=== PATIENT | female | born 1940 | race American Indian/Alaskan Native ===

== ENCOUNTER 2021-06-07 01:17 | Inpatient (IN) | payer MEDICARE ==
[~2021-06-07 01:17] MED LIST: EPINEPHrine 1 MG/10 ML SYRINGE ONE; LIDOCAINE PF 100 MG/5 ML (CARDIAC SYRINGE) IV ONE; SODIUM BICARB 8.4% 50 MEQ/50 ML SYRINGE IV ONE
[2021-06-07] MEDS ORDERED: SODIUM CHLORIDE 0.9% 1000 ML 1,000 ML IV ONE ×2 (01:28→01:39)
[2021-06-07] MEDS ORDERED: DOPamine 800 MG/D5W 250ML 800 MG/250 ML BAG IV ONE ×2 (01:42→02:08)
--- NOTE | 2021-06-07 01:45 | Emergency Department Report ---
HPI - General Time Seen by Provider: 06/07/21 01:25 - HPI HPI: Room 22 The patient is an 81-year-old female present with a chief complaint of altered mental status. The patient is at [facility] under [facility] (full code) brought in with altered mental status. Per EMS the patient has a history of diabetes and dementia but is normally alert and talkative. Patient is completely unresponsive upon arrival to the ED with absent gag reflex, subsequently the patient was intubated on arrival and did not require RSI medications ED Past Medical Hx - Past Medical History Hx Diabetes: Yes Hx Dementia: Yes - Surgical History Past Surgical History?: No - Family History Family history: no significant - Social History Smoking Status: Unknown if ever smoked ED Review of Systems ROS: Stated complaint: UNRESPONSIVE Other details as noted in HPI Comment: Unobtainable due to pts medical conditions Physical Exam - Physical Exam Physical Exam: GENERAL: The patient is well-developed well-nourished female unresponsive on stretcher. [] HEENT: Normocephalic. Atraumatic. Pupils 3 to 2 mm bilaterally NECK: Supple. Trachea midline CHEST/LUNGS: Agonal respirations HEART/CARDIOVASCULAR: Regular. There is no tachycardia. There is no gallop rub or murmur. ABDOMEN: Abdomen is soft, nontender. Patient has normal bowel sounds. There is no abdominal distention. SKIN: There is no rash. There is no edema. There is no diaphoresis. NEURO: The patient is unresponsive. Absent gag reflex. GCS 3 MUSCULOSKELETAL: T There is no evidence of acute injury. ED Course - Reevaluation(s) Reevaluation #1: 06/07/21 01:45 Patient bradycardia down to asystole. ACLS initiated. Patient was given 1 round of epi and 1 amp sodium bicarb with return of spontaneous circulation - Central Line Placement Right Femoral Consent Obtained: emergent situation Time Out Performed: Yes Patient Placed on Monitor/Pulse Ox: Yes MD Prep: mask, gown, gloves Central Line Prep: Chlorhexidine scrub Local Anesthesia Used: Lidocaine 1% Amount of Anesthesia Used (mls): 5 Ultrasound Used for Placement: No Central Line Lumen Inserted: triple Reason for Insertion: High Alert Medication Bloods Obtained for Lab: No Central Line Position: good blood return (Nonpulsatile) Dressing Applied: Tegaderm Patient Tolerated Procedure: well, no complications Complications: none - Intubation Time Out Performed: No Laryngoscope: fiberoptic video scope Size: 3 Assist Device Used: fiberoptic device ET Tube Size: 7 Tube Secured Depth (cm): 21 Tube Secured Location: lips Tube Placement Confirmation: visualized tube passing t, equal breath sounds bilat, no breath sounds over epi, confirmation by capnometr Patient Tolerated Procedure: well, no complications Intubation Complications: none ED Medical Decision Making - Lab Data Result diagrams: 06/07/21 01:39 06/07/21 01:39 Laboratory Tests 06/07/21 06/07/21 06/07/21 01:25 01:39 01:39 WBC 16.8 H RBC 3.21 L Hgb 10.1 Hct 38.1 MCV 119 H MCH 32 MCHC 27 L RDW 17.0 H Plt Count 307 PT 15.4 H INR 1.09 APTT 27.4 VBG pH Sodium Potassium Chloride Carbon Dioxide Anion Gap BUN Creatinine Estimated GFR BUN/Creatinine Ratio Glucose POC Glucose > 600 H Lactic Acid Calcium Total Bilirubin AST ALT Alkaline Phosphatase Ammonia Total Creatine Kinase CK-MB (CK-2) CK-MB (CK-2) Rel Index Troponin T Total Protein Albumin Albumin/Globulin Ratio Lipase 06/07/21 06/07/21 06/07/21 01:39 01:39 01:39 WBC RBC Hgb Hct MCV MCH MCHC RDW Plt Count PT INR APTT VBG pH Sodium 147 H Potassium 8.0 H* Chloride 95.7 L Carbon Dioxide Anion Gap 55 BUN 76 H Creatinine 4.8 H Estimated GFR 9 BUN/Creatinine Ratio 16 Glucose 1203 H* POC Glucose Lactic Acid 6.50 H* Calcium 9.2 Total Bilirubin 0.40 AST 60 H ALT 27 Alkaline Phosphatase 124 Ammonia 92.0 H Total Creatine Kinase 431 H CK-MB (CK-2) 6.7 H CK-MB (CK-2) Rel Index 1.5 Troponin T Total Protein 6.1 L Albumin 3.7 L Albumin/Globulin Ratio 1.5 Lipase 80 H 06/07/21 01:39 WBC RBC Hgb Hct MCV MCH MCHC RDW Plt Count PT INR APTT VBG pH 7.003 L* Sodium Potassium Chloride Carbon Dioxide Anion Gap BUN Creatinine Estimated GFR BUN/Creatinine Ratio Glucose POC Glucose Lactic Acid Calcium Total Bilirubin AST ALT Alkaline Phosphatase Ammonia Total Creatine Kinase CK-MB (CK-2) CK-MB (CK-2) Rel Index Troponin T Total Protein Albumin Albumin/Globulin Ratio Lipase - EKG Data -: EKG Interpreted by Me Rate: tachycardia (141 bpm) - EKG Data When compared to previous EKG there are: previous EKG unavailable Interpretation: nonspecific ST-T wave darren - Radiology Data Radiology results: report reviewed (CT head, chest x-ray), image reviewed (CT head, chest x-ray) interpreted by me: Chest x-ray-no definite focal infiltrates, no pneumothorax. ET tube in appropriate position [facility] [address] [place] [address] Cat Scan Report Signed Patient: EMMA ALCOCER MR#: [id number] 14 : 1940 Acct:[id number] Age/Sex: 81 / F ADM Date: 06/07/21 Loc: ED Attending Dr: Ordering Physician: NICO KAUR MD Date of Service: 06/07/21 Procedure(s): CT head/brain wo con Accession Number(s): [id number] cc: NICO KAUR MD CT HEAD WITHOUT CONTRAST INDICATION / CLINICAL INFORMATION: Altered mental status. TECHNIQUE: CT of the head was performed without administration of intravenous contrast. All CT scans at this location are performed using CT dose reduction for ALARA by means of automated exposur e control. COMPARISON: None available. FINDINGS: CEREBRAL PARENCHYMA: No significant abnormality. No acute territorial infarct. Generalized cortical and central atrophy. Periventricular regions of white matter hypoattenuation compatible with microvascular ischemia. HEMORRHAGE: None. EXTRA-AXIAL SPACES: Normal in size and morphology for the patient's age. Small calcified left frontal meningioma not excluded. VENTRICULAR SYSTEM: Normal in size and morphology for the patient's age. MIDLINE SHIFT / HERNIATION: None. CEREBELLUM / BRAINSTEM: No significant abnormality. ORBITS: Prior repair of a left cataract. SOFT TISSUES: No significant abnormality. SKULL: No significant abnormality. PARANASAL SINUSES / MASTOID AIR CELLS: Normal as visualized. ADDITIONAL FINDINGS: Partial imaging of right nasogastric tube. IMPRESSION: 1. Generalized atrophy and findings compatible with microvascular ischemia. No CT evidence of acute intracranial pathology. Signer Name: Nathen Wisdom II, MD Signed: 06/07/2021 3:18 AM Workstation Name: [id number] Transcribed By: SALLIE Dictated By: NATHEN WISDOM II, MD Electronically Authenticated By: NATHEN WISDOM II, MD Signed Date/Time: 06/07/21317 DD/ 4 TD/TT: Print Cancel [facility] [address] [place] [address] XRay Report Signed Patient: EMMA ALCOCER MR#: [id number] 14 : 1940 Acct:[id number] Age/Sex: 81 / F ADM Date: 06/07/21 Loc: ED Attending Dr: Ordering Physician: NICO KAUR MD Date of Service: 06/07/21 Procedure(s): XR chest 1V ap Accession Number(s): [id number] cc: NICO KAUR MD Fluoro Time In Minutes: CHEST 1 VIEW INDICATION / CLINICAL INFORMATION: Altered mental status, status post intubation. COMPARISON: None available. FINDINGS: SUPPORT DEVICES: Endotracheal tube terminates 3 to 4 cm above the chino. Esophagogastric tube wi thin the mid fundus. Defibrillator pad overlies the right chest. HEART / MEDIASTINUM: No significant abnormality. LUNGS / PLEURA: Small left suprahilar pulmonary nodule measuring 9 mm. Lungs otherwise clear. No pneumothorax. ADDITIONAL FINDINGS: No significant additional findings. Possible prior right mastectomy and axillary dissection. IMPRESSION: 1. No active cardiopulmonary disease. 2. Satisfactory positioning of endotracheal and esophagogastric tubes. 3. Small left pulmonary nodule not excluded. CT may be useful for further characterization. Signer Name: Nathen Wisdom II, MD Signed: 06/07/2021 2:19 AM Workstation Name: [id number] Transcribed By: Dictated By: NATHEN WISDOM II, MD Electronically Authenticated By: NATHEN WISDOM II, MD Signed Date/Time: 06/07/21218 DD/ 6 TD/TT: - Differential Diagnosis DKA, ICH, ACS, hepatic encephalopathy, metabolic encephalopathy Critical care attestation.: If time is entered above; I have spent that time in minutes in the direct care of this critically ill patient, excluding procedure time. ED Disposition Clinical Impression: Altered mental status, DKA (diabetic ketoacidosis), Hepatic encephalopathy, Dehydration, Leukocytosis, Acute kidney injury Disposition: ADMITTED INPATIENT Is pt being admited?: Yes Does the pt Need Aspirin: No Condition: Serious Instructions: Diabetic Ketoacidosis (ED) Time of Disposition: 03:37 (Hospitalist called (Dr Thomas))
[2021-06-07 02:14] LABS: Mean Corpuscular HGB Conc 27 % (30-34); Platelet Count 307 K/mm3 (140-440); Red Blood Count 3.21 M/mm3 (3.65-5.03)
[2021-06-07 02:18] LABS: Hematocrit 38.1 % (30.3-42.9); Hemoglobin 10.1 gm/dl (10.1-14.3); Mean Corpuscular Volume 119 fl (79-97)
[2021-06-07 02:24] LABS: INR 1.09 (0.87-1.13); Partial Thromboplastin Time 27.4 Sec. (24.2-36.6)
--- NOTE | 2021-06-07 02:24 | XRay Report ---
CHEST 1 VIEW INDICATION / CLINICAL INFORMATION: Altered mental status, status post intubation. COMPARISON: None available. FINDINGS: SUPPORT DEVICES: Endotracheal tube terminates 3 to 4 cm above the chino. Esophagogastric tube within the mid fundus. Defibrillator pad overlies the right chest. HEART / MEDIASTINUM: No significant abnormality. LUNGS / PLEURA: Small left suprahilar pulmonary nodule measuring 9 mm. Lungs otherwise clear. No pneu mothorax. ADDITIONAL FINDINGS: No significant additional findings. Possible prior right mastectomy and axillary dissection. IMPRESSION: 1. No active cardiopulmonary disease. 2. Satisfactory positioning of endotracheal and esophagogastric tubes. 3. Small left pulmonary nodule not excluded. CT may be useful for further characterization. Signer Name: Aubrey Long II, MD Signed: 06/07/2021 2:19 AM Workstation Name: [id number]
[2021-06-07 02:33] LABS: Creatine Kinase MB 6.7 ng/mL (0.0-4.0)
[2021-06-07 02:34] LABS: Albumin 3.7 g/dL (3.9-5); Calcium 9.2 mg/dL (8.4-10.2)
[2021-06-07] MEDS ORDERED: INSULIN REGULAR, HUMAN 100 UNITS/1 ML IV ONE (02:46)
[2021-06-07] MEDS ORDERED: INSULIN REGULAR, HUMAN 100 UNITS in SODIUM CHLORIDE 0.9% 99 ML IV SCH (03:00)
--- NOTE | 2021-06-07 03:22 | Cat Scan Report ---
CT HEAD WITHOUT CONTRAST INDICATION / CLINICAL INFORMATION: Altered mental status. TECHNIQUE: CT of the head was performed without administration of intravenous contrast. All CT scans at this location are performed using CT dose reduction for ALARA by means of automated exposure contr ol. COMPARISON: None available. FINDINGS: CEREBRAL PARENCHYMA: No significant abnormality. No acute territorial infarct. Generalized cortical a nd central atrophy. Periventricular regions of white matter hypoattenuation compatible with microvasc ular ischemia. HEMORRHAGE: None. EXTRA-AXIAL SPACES: Normal in size and morphology for the patient's age. Small calcified left frontal meningioma not excluded. VENTRICULAR SYSTEM: Normal in size and morphology for the patient's age. MIDLINE SHIFT / HERNIATION: None. CEREBELLUM / BRAINSTEM: No significant abnormality. ORBITS: Prior repair of a left cataract. SOFT TISSUES: No significant abnormality. SKULL: No significant abnormality. PARANASAL SINUSES / MASTOID AIR CELLS: Normal as visualized. ADDITIONAL FINDINGS: Partial imaging of right nasogastric tube. IMPRESSION: 1. Generalized atrophy and findings compatible with microvascular ischemia. No CT evidence of acute i ntracranial pathology. Signer Name: Aubrey Long II, MD Signed: 06/07/2021 3:18 AM Workstation Name: [id number]
[2021-06-07 03:33] LABS: ABG Base Excess -26.1 mmol/L (-2.0-3.0); ABG HCO3 4.1 mmol/L (20.0-26.0); ABG Oxygen Saturation 99.4 % (95.0-99.0); ABG PCO2 18.4 mm Hg
[2021-06-07 03:34] LABS: ABG PO2 293.4 mm Hg (80.0-90.0)
[2021-06-07 03:35] LABS: ABG PH 6.964 pH Units (7.350-7.450)
[2021-06-07] MEDS ORDERED: SODIUM BICARB 8.4% 50 MEQ/50 ML SYRINGE IV ONE (03:35)
[2021-06-07 03:45] LABS: Anisocytosis RARE; Basophils % (Manual) 0 % (0.0-1.8); Eosinophils % (Manual) 0 % (0.0-4.3); Macrocytosis 2+; Total Cells Counted 100
[2021-06-07] MEDS ORDERED: MORPHINE 2 MG/1 ML INJ IV PRN (04:05)
[2021-06-07] MEDS ORDERED: MORPHINE 4 MG/1 ML INJ IV PRN (04:05)
[2021-06-07] MEDS ORDERED: ACETAMINOPHEN 325 MG/10.15 ML ORAL LIQD UNIT DOSE FEEDTUBE PRN (04:05)
[2021-06-07] MEDS ORDERED: SODIUM CHLORIDE 0.9% 1000 ML 1,000 ML IV SCH (04:15)
--- NOTE | 2021-06-07 04:20 | History and Physical Report ---
History of Present Illness Date of examination: 06/07/21 Date of admission: 06/07/2021 Chief complaint: Altered mental status. History of present illness: 81-year-old -[place] female resident of [facility]hospice brought into the emergency room today via EMS for evaluation of changes in mental status. Patient has known history of diabetes mellitus and dementia was said to be normally alert and able to communicate. However she was found to be completely unresponsive today and brought into the emergency room for further evaluation. Upon arrival in the emergency room she was found not to have gag reflex and obtunded. She was subsequently intubated in the emergency room. Most of the history was obtained from the ER staff as patient is unable to give any information at this time. Work-up in the emergency room today, labs significant for leukocytosis of 16.8, sodium of 152, potassium of 5.3, CO2 of 2, glucose of 1026, lactic acid of 6.7, blood glucose greater than 600, phosphorus is 10.9 and magnesium 3.1. AST of 60 and ALT of 27. Ammonia level of 92, creatinine kinase of 431. ABG significant for pH of 6.9, PCO2 of 18.4, PO2 of 293, bicarb of 4.1. O2 sat of 99.4. Chest x-ray and CT scan of the head were unremarkable. Patient being admitted with multiple medical problems including DKA, hepatic encephalopathy, dehydration, leukocytosis, TONI and changes in mental status. Past History Past Medical History: diabetes, other (Dementia) Past Surgical History: Other (Unknown) Social history: other (Unknown) Medications and Allergies Allergies Allergy/AdvReac Type Severity Reaction Status Date / Time No Known Allergies Allergy Verified 06/07/21 02:20 Active Meds: Active Medications Acetaminophen (Acetaminophen 325 Mg/10.15 Ml Oral Liqd Unit Dose) 650 mg FEEDTUBE Q6H PRN PRN Reason: Pain MILD(1-3)/Fever >100.5/WOLF Dopamine HCl/Dextrose (Dopamine 800 Mg/D5w 250ml) 800 mg in 250 mls @ 4.594 mls/hr IV TITR ONE; Protocol Stop: 06/09/21 08:33 Last Titration: 06/07/21 04:09 Dose: 20 mcg/kg/min, 18.375 mls/hr Insulin Human Regular 100 (units/ Sodium Chloride) 100 mls @ 10 mls/hr IV TITR WANG; Protocol Last Admin: 06/07/21 03:28 Dose: 8 units/hr, 8 mls/hr Sodium Chloride (Nacl 0.9% 1000 Ml) 1,000 mls @ 150 mls/hr IV DIRECT WANG Potassium Chloride/Dextrose/Sod Cl (D5w/0.45% Nacl/Kcl 20 Meq) 20 meq in 1,000 mls @ 125 mls/hr IV DIRECT WANG Sodium Bicarbonate 50 meq/ (Sodium Chloride) 1,050 mls @ 100 mls/hr IV DIRECT WANG Morphine Sulfate (Morphine 2 Mg/1 Ml Inj) 2 mg IV Q4H PRN PRN Reason: Pain, Moderate (4-6) Morphine Sulfate (Morphine 4 Mg/1 Ml Inj) 4 mg IV Q4H PRN PRN Reason: Pain , Severe (7-10) Sodium Chloride (Sodium Chloride 0.9% 10 Ml Flush Syringe) 10 ml IV BID WANG Sodium Chloride (Sodium Chloride 0.9% 10 Ml Flush Syringe) 10 ml IV PRN PRN PRN Reason: LINE FLUSH Review of Systems ROS unobtainable: due to endotracheal tube Exam - Constitutional Vitals: Temp Pulse Resp BP Pulse Ox 97.4 F L 124 H 19 106/36 96 06/07/21 02:47 06/07/21 04:00 06/07/21 04:00 06/07/21 04:00 06/07/21 04:00 General appearance: Present: no acute distress, well-nourished, other (Intubated and Sedated) - EENT Eyes: Present: PERRL, EOM intact. Absent: scleral icterus ENT: hearing intact, clear oral mucosa, dentition normal - Neck Neck: Present: supple, normal ROM - Respiratory Respiratory effort: normal Respiratory: bilateral: CTA - Cardiovascular Rhythm: regular Heart Sounds: Present: S1 & S2. Absent: gallop, systolic murmur, rub, click - Extremities Extremities: no ischemia, pulses intact, pulses symmetrical, No edema, normal temperature, normal color, Full ROM Peripheral Pulses: within normal limits - Abdominal General gastrointestinal: Present: soft, non-tender, non-distended, normal bowel sounds. Absent: mass - Integumentary Integumentary: Present: clear, warm, dry, normal turgor. Absent: rash - Musculoskeletal Musculoskeletal: strength equal bilaterally - Psychiatric Psychiatric: cooperative - Neurologic Neurologic: no focal deficits, other (Intubated and Sedated.) HEART Score - HEART Score Troponin: Troponin T ng/mL (0.00-0.029) 06/07/21 01:39 Results - Labs CBC & Chem 7: 06/07/21 01:39 06/07/21 03:18 Labs: Abnormal lab results 06/07/21 06/07/21 06/07/21 Range/Units 01:25 01:39 01:39 WBC 16.8 H (4.5-11.0) K/mm3 RBC 3.21 L (3.65-5.03) M/mm3 MCV 119 H (79-97) fl MCHC 27 L (30-34) % RDW 17.0 H (13.2-15.2) % Seg Neuts % (Manual) 79.0 H (40.0-70.0) % Lymphocytes % (Manual) 13.0 L (13.4-35.0) % Monocytes % (Manual) 8.0 H (0.0-7.3) % Seg Neutrophils # Man 13.3 H (1.8-7.7) K/mm3 Monocytes # (Manual) 1.3 H (0.0-0.8) K/mm3 PT 15.4 H (12.2-14.9) Sec. ABG pH (7.350-7.450) pH Units ABG pO2 (80.0-90.0) mm Hg ABG HCO3 (20.0-26.0) mmol/L ABG O2 Saturation (95.0-99.0) % ABG Base Excess (-2.0-3.0) mmol/L ABG Hemoglobin (12.0-16.0) gm/dl VBG pH (7.320-7.420) Sodium (137-145) mmol/L Potassium (3.6-5.0) mmol/L Chloride (98-107) mmol/L BUN (7-17) mg/dL Creatinine (0.6-1.2) mg/dL Glucose (65-100) mg/dL POC Glucose > 600 H (70-105) mg/dL Lactic Acid (0.7-2.0) mmol/L AST (5-40) units/L Ammonia (25-60) umol/L Total Creatine Kinase (30-135) units/L CK-MB (CK-2) (0.0-4.0) ng/mL Total Protein (6.3-8.2) g/dL Albumin (3.9-5) g/dL Lipase (13-60) units/L 06/07/21 06/07/21 06/07/21 Range/Units 01:39 01:39 01:39 WBC (4.5-11.0) K/mm3 RBC (3.65-5.03) M/mm3 MCV (79-97) fl MCHC (30-34) % RDW (13.2-15.2) % Seg Neuts % (Manual) (40.0-70.0) % Lymphocytes % (Manual) (13.4-35.0) % Monocytes % (Manual) (0.0-7.3) % Seg Neutrophils # Man (1.8-7.7) K/mm3 Monocytes # (Manual) (0.0-0.8) K/mm3 PT (12.2-14.9) Sec. ABG pH (7.350-7.450) pH Units ABG pO2 (80.0-90.0) mm Hg ABG HCO3 (20.0-26.0) mmol/L ABG O2 Saturation (95.0-99.0) % ABG Base Excess (-2.0-3.0) mmol/L ABG Hemoglobin (12.0-16.0) gm/dl VBG pH (7.320-7.420) Sodium 147 H (137-145) mmol/L Potassium 8.0 H* (3.6-5.0) mmol/L Chloride 95.7 L (98-107) mmol/L BUN 76 H (7-17) mg/dL Creatinine 4.8 H (0.6-1.2) mg/dL Glucose 1203 H* (65-100) mg/dL POC Glucose (70-105) mg/dL Lactic Acid 6.50 H* (0.7-2.0) mmol/L AST 60 H (5-40) units/L Ammonia 92.0 H (25-60) umol/L Total Creatine Kinase 431 H (30-135) units/L CK-MB (CK-2) 6.7 H (0.0-4.0) ng/mL Total Protein 6.1 L (6.3-8.2) g/dL Albumin 3.7 L (3.9-5) g/dL Lipase 80 H (13-60) units/L 06/07/21 06/07/21 Range/Units 01:39 03:20 WBC (4.5-11.0) K/mm3 RBC (3.65-5.03) M/mm3 MCV (79-97) fl MCHC (30-34) % RDW (13.2-15.2) % Seg Neuts % (Manual) (40.0-70.0) % Lymphocytes % (Manual) (13.4-35.0) % Monocytes % (Manual) (0.0-7.3) % Seg Neutrophils # Man (1.8-7.7) K/mm3 Monocytes # (Manual) (0.0-0.8) K/mm3 PT (12.2-14.9) Sec. ABG pH 6.964 L* (7.350-7.450) pH Units ABG pO2 293.4 H (80.0-90.0) mm Hg ABG HCO3 4.1 L (20.0-26.0) mmol/L ABG O2 Saturation 99.4 H (95.0-99.0) % ABG Base Excess -26.1 L (-2.0-3.0) mmol/L ABG Hemoglobin 10.1 L (12.0-16.0) gm/dl VBG pH 7.003 L* (7.320-7.420) Sodium (137-145) mmol/L Potassium (3.6-5.0) mmol/L Chloride (98-107) mmol/L BUN (7-17) mg/dL Creatinine (0.6-1.2) mg/dL Glucose (65-100) mg/dL POC Glucose (70-105) mg/dL Lactic Acid (0.7-2.0) mmol/L AST (5-40) units/L Ammonia (25-60) umol/L Total Creatine Kinase (30-135) units/L CK-MB (CK-2) (0.0-4.0) ng/mL Total Protein (6.3-8.2) g/dL Albumin (3.9-5) g/dL Lipase (13-60) units/L Assessment and Plan - Patient Problems (1) DKA (diabetic ketoacidosis) Current Visit: Yes Status: Acute Plan to address problem: Patient admitted and placed in the intensive care unit. Patient has been started on insulin drip and IV fluid. We will monitor chemistry closely. (2) Acute kidney injury Current Visit: Yes Status: Acute Plan to address problem: Baseline BUN and creatinine unknown. We will continue to monitor BUN and creatinine. Continue on IV fluid. Consult placed to nephrology for evaluation. (3) Altered mental status Current Visit: Yes Status: Acute Plan to address problem: Possibly secondary to the DKA. Patient has a baseline history of dementia. Will monitor mental status. (4) Hepatic encephalopathy Current Visit: Yes Status: Acute Plan to address problem: We will continue to monitor liver enzymes. Consult placed to gastroenterology for recommendations. (5) Leukocytosis Current Visit: Yes Status: Acute Plan to address problem: Possibly reactive. We will monitor CBC. (6) DVT prophylaxis Current Visit: Yes Status: Acute Plan to address problem: We will place patient on sequential compression device. (7) Full code status Current Visit: Yes Status: Acute Plan to address problem: Patient is full code.
[2021-06-07 04:35] LABS: Calcium 9.7 mg/dL (8.4-10.2)
[2021-06-07] MEDS ORDERED: D5W/0.45% NACL/KCL 20 MEQ 20 MEQ/1,000 ML BAG IV SCH (05:00)
[2021-06-07] MEDS ORDERED: SODIUM BICARBONATE 50 MEQ in SODIUM CHLORIDE 0.45% 1,000 ML IV SCH (05:00)
[2021-06-07 05:47] LABS: Bilirubin,Urine NEG (Negative); Blood,Urine MOD (Negative); Color,Urine Yellow (Yellow); Mucus,Urine FEW /HPF; Protein,Urine <15 mg/dL mg/dL (Negative); Urobilinogen,Urine < 2.0 mg/dL (<2.0)
--- NOTE | 2021-06-07 07:43 | Gastroenterology Consultation ---
History of Present Illness - Reason for Consult Consult date: 06/07/21 elevated lft Requesting physician: TJ GUPTA - History of Present Illness Patient is currently intubated and not responsive no family at bedside therefore history obtained from chart. In brief 81-year-old female brought to the emergency room for change in mental status. Unresponsive. Emergently intubated for airway protection. GI consulted for evaluation of elevated ammonia and LFTs No known history of liver disease Obtained/updated/reviewed patient's current medications Past History Past Medical History: diabetes, other (Dementia) Past Surgical History: Other (Unknown) Social history: other (Unknown) Medications and Allergies Allergies Allergy/AdvReac Type Severity Reaction Status Date / Time No Known Allergies Allergy Verified 06/07/21 02:20 Home Medications Medication Instructions Recorded Confirmed Last Taken Type ALPRAZolam [Xanax TAB] 0.25 mg PO BID PRN 06/07/21 06/07/21 Unknown History ARIPiprazole 5 mg PO QHS 06/07/21 06/07/21 Unknown History Amlodipine Besylate [Norvasc] 10 mg PO QDAY 06/07/21 06/07/21 Unknown History Aspirin [Adult Aspirin] 81 mg PO QDAY 06/07/21 06/07/21 Unknown History AtorvaSTATin [Lipitor] 20 mg PO QDAY 06/07/21 06/07/21 Unknown History Divalproex [Lata POWELL] 125 mg PO BID 06/07/21 06/07/21 Unknown History Insulin Aspart [Insulin Aspart 9 unit SQ TID 06/07/21 06/07/21 Unknown History Flexpen] Insulin Glargine,Hum.rec.anlog 28 unit SQ QHS 06/07/21 06/07/21 Unknown History [Semglee] LORazepam [Ativan] 0.5 mg PO QDAY PRN 06/07/21 06/07/21 Unknown History Memantine HCl 10 mg PO BID 06/07/21 06/07/21 Unknown History Rivastigmine [Exelon] 1 each TD QDAY 06/07/21 06/07/21 Unknown History Sertraline HCl [Zoloft] 50 mg PO QAM 06/07/21 06/07/21 Unknown History Trazodone HCl 100 mg PO QHS 06/07/21 06/07/21 Unknown History Active Meds: Active Medications Acetaminophen (Acetaminophen 325 Mg/10.15 Ml Oral Liqd Unit Dose) 650 mg FEEDTUBE Q6H PRN PRN Reason: Pain MILD(1-3)/Fever >100.5/WOLF Dopamine HCl/Dextrose (Dopamine 800 Mg/D5w 250ml) 800 mg in 250 mls @ 4.594 mls/hr IV TITR ONE; Protocol Stop: 06/09/21 08:33 Last Titration: 06/07/21 04:09 Dose: 20 mcg/kg/min, 18.375 mls/hr Insulin Human Regular 100 (units/ Sodium Chloride) 100 mls @ 10 mls/hr IV TITR WAGN; Protocol Last Titration: 06/07/21 05:10 Dose: 8 units/hr, 8 mls/hr Sodium Chloride (Nacl 0.9% 1000 Ml) 1,000 mls @ 150 mls/hr IV DIRECT WANG Last Admin: 06/07/21 04:31 Dose: 150 mls/hr Potassium Chloride/Dextrose/Sod Cl (D5w/0.45% Nacl/Kcl 20 Meq) 20 meq in 1,000 mls @ 125 mls/hr IV DIRECT WANG Sodium Bicarbonate 50 meq/ (Sodium Chloride) 1,050 mls @ 100 mls/hr IV DIRECT WANG Last Admin: 06/07/21 04:55 Dose: 100 mls/hr Morphine Sulfate (Morphine 2 Mg/1 Ml Inj) 2 mg IV Q4H PRN PRN Reason: Pain, Moderate (4-6) Morphine Sulfate (Morphine 4 Mg/1 Ml Inj) 4 mg IV Q4H PRN PRN Reason: Pain , Severe (7-10) Sodium Chloride (Sodium Chloride 0.9% 10 Ml Flush Syringe) 10 ml IV BID WANG Sodium Chloride (Sodium Chloride 0.9% 10 Ml Flush Syringe) 10 ml IV PRN PRN PRN Reason: LINE FLUSH Review of Systems - Review of Systems ROS unobtainable: due to endotracheal tube, due to mental status Exam - Constitutional Vital Signs: Temp Pulse Resp BP Pulse Ox 97.4 F L 125 H 27 H 104/41 95 06/07/21 02:47 06/07/21 06:45 06/07/21 06:45 06/07/21 06:45 06/07/21 06:30 General appearance: other (Intubated. Not responding to auditory and physical stimulation) - Respiratory Respiratory effort: other (On mechanical ventilation) - Cardiovascular Rhythm: other (Tachycardic) - Gastrointestinal General gastrointestinal: Present: soft - Integumentary Integumentary: Present: dry - Neurologic Neurological: disoriented - Psychiatric Psychiatric: other (Able to assess due to patient's mental status) - Labs CBC & Chem 7: 06/07/21 01:39 06/07/21 06:33 Lab Results: Laboratory Results - last 24 hr 06/07/21 06/07/21 06/07/21 01:25 01:39 01:39 WBC 16.8 H RBC 3.21 L Hgb 10.1 Hct 38.1 MCV 119 H MCH 32 MCHC 27 L RDW 17.0 H Plt Count 307 Add Manual Diff Complete Total Counted 100 Seg Neuts % (Manual) 79.0 H Band Neutrophils % 0 Lymphocytes % (Manual) 13.0 L Reactive Lymphs % (Man) 0 Monocytes % (Manual) 8.0 H Eosinophils % (Manual) 0 Basophils % (Manual) 0 Metamyelocytes % 0 Myelocytes % 0 Promyelocytes % 0 Blast Cells % 0 Nucleated RBC % Not Reportable Seg Neutrophils # Man 13.3 H Band Neutrophils # 0.0 Lymphocytes # (Manual) 2.2 Abs React Lymphs (Man) 0.0 Monocytes # (Manual) 1.3 H Eosinophils # (Manual) 0.0 Basophils # (Manual) 0.0 Metamyelocytes # 0.0 Myelocytes # 0.0 Promyelocytes # 0.0 Blast Cells # 0.0 WBC Morphology Not Reportable Hypersegmented Neuts Not Reportable Hyposegmented Neuts Not Reportable Hypogranular Neuts Not Reportable Smudge Cells Not Reportable Toxic Granulation Not Reportable Toxic Vacuolation Not Reportable Dohle Bodies Not Reportable Pelger-Huet Anomaly Not Reportable Lola Rods Not Reportable Platelet Estimate Not Reportable Clumped Platelets Not Reportable Plt Clumps, EDTA Not Reportable Large Platelets Not Reportable Giant Platelets Not Reportable Platelet Satelliting Not Reportable Plt Morphology Comment Not Reportable RBC Morphology Not Reportable Dimorphic RBCs Not Reportable Polychromasia Not Reportable Hypochromasia Not Reportable Poikilocytosis Not Reportable Anisocytosis Rare Microcytosis Not Reportable Macrocytosis 2+ Spherocytes Not Reportable Pappenheimer Bodies Not Reportable Sickle Cells Not Reportable Target Cells Not Reportable Tear Drop Cells Not Reportable Ovalocytes Not Reportable Helmet Cells Not Reportable [place] Bodies Not Reportable [place] Rings Not Reportable [place] Cells Not Reportable Bite Cells Not Reportable Crenated Cell Not Reportable Elliptocytes Not Reportable Acanthocytes (Spur) Not Reportable Rouleaux Not Reportable Hemoglobin C Crystals Not Reportable Schistocytes Not Reportable Malaria parasites Not Reportable Ervin Bodies Not Reportable Hem Pathologist Commnt No PT 15.4 H INR 1.09 APTT 27.4 ABG pH ABG pCO2 ABG pO2 ABG HCO3 ABG O2 Saturation ABG O2 Content ABG Base Excess ABG Hemoglobin ABG Carboxyhemoglobin ABG Methemoglobin VBG pH Oxyhemoglobin FiO2 Sodium Potassium Chloride Carbon Dioxide Anion Gap BUN Creatinine Estimated GFR BUN/Creatinine Ratio Glucose POC Glucose > 600 H Lactic Acid Calcium Phosphorus Magnesium Total Bilirubin AST ALT Alkaline Phosphatase Ammonia Total Creatine Kinase CK-MB (CK-2) CK-MB (CK-2) Rel Index Troponin T Total Protein Albumin Albumin/Globulin Ratio Lipase Urine Color Urine Turbidity Urine pH Ur Specific [place] Urine Protein Urine Glucose (UA) Urine Ketones Urine Blood Urine Nitrite Urine Bilirubin Urine Urobilinogen Ur Leukocyte Esterase Urine WBC (Auto) Urine RBC (Auto) U Epithel Cells (Auto) Urine Mucus 06/07/21 06/07/21 06/07/21 01:39 01:39 01:39 WBC RBC Hgb Hct MCV MCH MCHC RDW Plt Count Add Manual Diff Total Counted Seg Neuts % (Manual) Band Neutrophils % Lymphocytes % (Manual) Reactive Lymphs % (Man) Monocytes % (Manual) Eosinophils % (Manual) Basophils % (Manual) Metamyelocytes % Myelocytes % Promyelocytes % Blast Cells % Nucleated RBC % Seg Neutrophils # Man Band Neutrophils # Lymphocytes # (Manual) Abs React Lymphs (Man) Monocytes # (Manual) Eosinophils # (Manual) Basophils # (Manual) Metamyelocytes # Myelocytes # Promyelocytes # Blast Cells # WBC Morphology Hypersegmented Neuts Hyposegmented Neuts Hypogranular Neuts Smudge Cells Toxic Granulation Toxic Vacuolation Dohle Bodies Pelger-Huet Anomaly Lola Rods Platelet Estimate Clumped Platelets Plt Clumps, EDTA Large Platelets Giant Platelets Platelet Satelliting Plt Morphology Comment RBC Morphology Dimorphic RBCs Polychromasia Hypochromasia Poikilocytosis Anisocytosis Microcytosis Macrocytosis Spherocytes Pappenheimer Bodies Sickle Cells Target Cells Tear Drop Cells Ovalocytes Helmet Cells [place] Bodies [place] Rings Jovanny Cells Bite Cells Crenated Cell Elliptocytes Acanthocytes (Spur) Rouleaux Hemoglobin C Crystals Schistocytes Malaria parasites Ervin Bodies Hem Pathologist Commnt PT INR APTT ABG pH ABG pCO2 ABG pO2 ABG HCO3 ABG O2 Saturation ABG O2 Content ABG Base Excess ABG Hemoglobin ABG Carboxyhemoglobin ABG Methemoglobin VBG pH Oxyhemoglobin FiO2 Sodium 147 H Potassium 8.0 H* Chloride 95.7 L Carbon Dioxide Anion Gap 55 BUN 76 H Creatinine 4.8 H Estimated GFR 9 BUN/Creatinine Ratio 16 Glucose 1203 H* POC Glucose Lactic Acid 6.50 H* Calcium 9.2 Phosphorus Magnesium Total Bilirubin 0.40 AST 60 H ALT 27 Alkaline Phosphatase 124 Ammonia 92.0 H Total Creatine Kinase 431 H CK-MB (CK-2) 6.7 H CK-MB (CK-2) Rel Index 1.5 Troponin T Total Protein 6.1 L Albumin 3.7 L Albumin/Globulin Ratio 1.5 Lipase 80 H Urine Color Urine Turbidity Urine pH Ur Specific [place] Urine Protein Urine Glucose (UA) Urine Ketones Urine Blood Urine Nitrite Urine Bilirubin Urine Urobilinogen Ur Leukocyte Esterase Urine WBC (Auto) Urine RBC (Auto) U Epithel Cells (Auto) Urine Mucus 06/07/21 06/07/21 06/07/21 01:39 03:11 03:18 WBC RBC Hgb Hct MCV MCH MCHC RDW Plt Count Add Manual Diff Total Counted Seg Neuts % (Manual) Band Neutrophils % Lymphocytes % (Manual) Reactive Lymphs % (Man) Monocytes % (Manual) Eosinophils % (Manual) Basophils % (Manual) Metamyelocytes % Myelocytes % Promyelocytes % Blast Cells % Nucleated RBC % Seg Neutrophils # Man Band Neutrophils # Lymphocytes # (Manual) Abs React Lymphs (Man) Monocytes # (Manual) Eosinophils # (Manual) Basophils # (Manual) Metamyelocytes # Myelocytes # Promyelocytes # Blast Cells # WBC Morphology Hypersegmented Neuts Hyposegmented Neuts Hypogranular Neuts Smudge Cells Toxic Granulation Toxic Vacuolation Dohle Bodies Pelger-Huet Anomaly Lola Rods Platelet Estimate Clumped Platelets Plt Clumps, EDTA Large Platelets Giant Platelets Platelet Satelliting Plt Morphology Comment RBC Morphology Dimorphic RBCs Polychromasia Hypochromasia Poikilocytosis Anisocytosis Microcytosis Macrocytosis Spherocytes Pappenheimer Bodies Sickle Cells Target Cells Tear Drop Cells Ovalocytes Helmet Cells [place] Bodies [place] Rings [place] Cells Bite Cells Crenated Cell Elliptocytes Acanthocytes (Spur) Rouleaux Hemoglobin C Crystals Schistocytes Malaria parasites Ervin Bodies Hem Pathologist Commnt PT INR APTT ABG pH ABG pCO2 ABG pO2 ABG HCO3 ABG O2 Saturation ABG O2 Content ABG Base Excess ABG Hemoglobin ABG Carboxyhemoglobin ABG Methemoglobin VBG pH 7.003 L* Oxyhemoglobin FiO2 Sodium Potassium Chloride Carbon Dioxide Anion Gap BUN Creatinine Estimated GFR BUN/Creatinine Ratio Glucose POC Glucose Lactic Acid 6.70 H* Calcium Phosphorus Magnesium Total Bilirubin AST ALT Alkaline Phosphatase Ammonia Total Creatine Kinase CK-MB (CK-2) CK-MB (CK-2) Rel Index Troponin T Total Protein Albumin Albumin/Globulin Ratio Lipase Urine Color Yellow Urine Turbidity Clear Urine pH 5.0 Ur Specific [place] 1.016 Urine Protein <15 mg/dl Urine Glucose (UA) >=500 Urine Ketones 20 Urine Blood Mod Urine Nitrite Neg Urine Bilirubin Neg Urine Urobilinogen < 2.0 Ur Leukocyte Esterase Neg Urine WBC (Auto) 1.0 Urine RBC (Auto) 3.0 U Epithel Cells (Auto) 7.0 Urine Mucus Few 06/07/21 06/07/21 06/07/21 03:18 03:18 03:20 WBC RBC Hgb Hct MCV MCH MCHC RDW Plt Count Add Manual Diff Total Counted Seg Neuts % (Manual) Band Neutrophils % Lymphocytes % (Manual) Reactive Lymphs % (Man) Monocytes % (Manual) Eosinophils % (Manual) Basophils % (Manual) Metamyelocytes % Myelocytes % Promyelocytes % Blast Cells % Nucleated RBC % Seg Neutrophils # Man Band Neutrophils # Lymphocytes # (Manual) Abs React Lymphs (Man) Monocytes # (Manual) Eosinophils # (Manual) Basophils # (Manual) Metamyelocytes # Myelocytes # Promyelocytes # Blast Cells # WBC Morphology Hypersegmented Neuts Hyposegmented Neuts Hypogranular Neuts Smudge Cells Toxic Granulation Toxic Vacuolation Dohle Bodies Pelger-Huet Anomaly Lola Rods Platelet Estimate Clumped Platelets Plt Clumps, EDTA Large Platelets Giant Platelets Platelet Satelliting Plt Morphology Comment RBC Morphology Dimorphic RBCs Polychromasia Hypochromasia Poikilocytosis Anisocytosis Microcytosis Macrocytosis Spherocytes Pappenheimer Bodies Sickle Cells Target Cells Tear Drop Cells Ovalocytes Helmet Cells [place] Bodies [place] Rings Jovanny Cells Bite Cells Crenated Cell Elliptocytes Acanthocytes (Spur) Rouleaux Hemoglobin C Crystals Schistocytes Malaria parasites Ervin Bodies Hem Pathologist Commnt PT INR APTT ABG pH 6.964 L* ABG pCO2 18.4 ABG pO2 293.4 H ABG HCO3 4.1 L ABG O2 Saturation 99.4 H ABG O2 Content 14.5 ABG Base Excess -26.1 L ABG Hemoglobin 10.1 L ABG Carboxyhemoglobin 1.5 ABG Methemoglobin 1.0 VBG pH Oxyhemoglobin 96.9 FiO2 100 Sodium 152 H Potassium 5.3 H D Chloride 103.2 Carbon Dioxide 2 L* Anion Gap 52 BUN 73 H Creatinine 4.6 H Estimated GFR 11 BUN/Creatinine Ratio 16 Glucose 1026 H* POC Glucose Lactic Acid Calcium 9.7 Phosphorus 10.90 H Magnesium 3.10 H Total Bilirubin AST ALT Alkaline Phosphatase Ammonia Total Creatine Kinase CK-MB (CK-2) CK-MB (CK-2) Rel Index Troponin T Total Protein Albumin Albumin/Globulin Ratio Lipase Urine Color Urine Turbidity Urine pH Ur Specific [place] Urine Protein Urine Glucose (UA) Urine Ketones Urine Blood Urine Nitrite Urine Bilirubin Urine Urobilinogen Ur Leukocyte Esterase Urine WBC (Auto) Urine RBC (Auto) U Epithel Cells (Auto) Urine Mucus 06/07/21 06/07/21 04:40 06:12 WBC RBC Hgb Hct MCV MCH MCHC RDW Plt Count Add Manual Diff Total Counted Seg Neuts % (Manual) Band Neutrophils % Lymphocytes % (Manual) Reactive Lymphs % (Man) Monocytes % (Manual) Eosinophils % (Manual) Basophils % (Manual) Metamyelocytes % Myelocytes % Promyelocytes % Blast Cells % Nucleated RBC % Seg Neutrophils # Man Band Neutrophils # Lymphocytes # (Manual) Abs React Lymphs (Man) Monocytes # (Manual) Eosinophils # (Manual) Basophils # (Manual) Metamyelocytes # Myelocytes # Promyelocytes # Blast Cells # WBC Morphology Hypersegmented Neuts Hyposegmented Neuts Hypogranular Neuts Smudge Cells Toxic Granulation Toxic Vacuolation Dohle Bodies Pelger-Huet Anomaly Lola Rods Platelet Estimate Clumped Platelets Plt Clumps, EDTA Large Platelets Giant Platelets Platelet Satelliting Plt Morphology Comment RBC Morphology Dimorphic RBCs Polychromasia Hypochromasia Poikilocytosis Anisocytosis Microcytosis Macrocytosis Spherocytes Pappenheimer Bodies Sickle Cells Target Cells Tear Drop Cells Ovalocytes Helmet Cells [place] Bodies [place] Rings Jovanny Cells Bite Cells Crenated Cell Elliptocytes Acanthocytes (Spur) Rouleaux Hemoglobin C Crystals Schistocytes Malaria parasites Ervin Bodies Hem Pathologist Commnt PT INR APTT ABG pH ABG pCO2 ABG pO2 ABG HCO3 ABG O2 Saturation ABG O2 Content ABG Base Excess ABG Hemoglobin ABG Carboxyhemoglobin ABG Methemoglobin VBG pH Oxyhemoglobin FiO2 Sodium Potassium Chloride Carbon Dioxide Anion Gap BUN Creatinine Estimated GFR BUN/Creatinine Ratio Glucose POC Glucose > 600 H > 600 H Lactic Acid Calcium Phosphorus Magnesium Total Bilirubin AST ALT Alkaline Phosphatase Ammonia Total Creatine Kinase CK-MB (CK-2) CK-MB (CK-2) Rel Index Troponin T Total Protein Albumin Albumin/Globulin Ratio Lipase Urine Color Urine Turbidity Urine pH Ur Specific [place] Urine Protein Urine Glucose (UA) Urine Ketones Urine Blood Urine Nitrite Urine Bilirubin Urine Urobilinogen Ur Leukocyte Esterase Urine WBC (Auto) Urine RBC (Auto) U Epithel Cells (Auto) Urine Mucus Assessment and Plan Given the pattern of liver injury this is most consistent with nonhepatic source versus less likely alcohol related. Strongly suspect that the elevation in liver enzymes is merely secondary sign of the patient's sepsis Continue to monitor liver enzymes but expect as patient's septic shock improves her liver enzymes will gradually improve as well Regarding patient's altered mental status given glucose level over thousand and diabetic ketoacidosis is more likely the source of the patient's change in mental status rather than hepatic encephalopathy NG tube output brown no evidence for GI bleed GI will sign off please call us back we can be of any further assistance - Patient Problems (1) Transaminitis Current Visit: Yes Status: Acute
[2021-06-07 07:48] LABS: Calcium 9.5 mg/dL (8.4-10.2)
--- NOTE | 2021-06-07 09:35 | Consultation ---
History of Present Illness - Reason for Consult acute renal failure, hyperkalemia, metabolic acidosis - History of Present Illness 81-year-old frail ill-appearing -[place] female with past medical hi story documented of diabetes and dementia, [facility]ci resident at [facility]/hospice, was brought into the emergency department secondary to worsening altered mentation and lethargy. Labs indicative of severe diabetic ketoacidosis with evidence of hyperkalemia and acute kidney injury noted for which nephrology is being consulted at this time. With worsening mentation she was intubated and is on pressor support at this time with dopamine. No previous renal function labs to review at this time and unfortunately there is no family at bedside for further history. She has Santos catheter in place with approximately 100 cc of urine output noted since arrival to the ED. Past History Past Medical History: diabetes, other (Dementia) Past Surgical History: Other (Unknown) Social history: other (Unknown) Medications and Allergies Allergies Allergy/AdvReac Type Severity Reaction Status Date / Time No Known Allergies Allergy Verified 06/07/21 02:20 Home Medications Medication Instructions Recorded Confirmed Last Taken Type ALPRAZolam [Xanax TAB] 0.25 mg PO BID PRN 06/07/21 06/07/21 Unknown History ARIPiprazole 5 mg PO QHS 06/07/21 06/07/21 Unknown History Amlodipine Besylate [Norvasc] 10 mg PO QDAY 06/07/21 06/07/21 Unknown History Aspirin [Adult Aspirin] 81 mg PO QDAY 06/07/21 06/07/21 Unknown History AtorvaSTATin [Lipitor] 20 mg PO QDAY 06/07/21 06/07/21 Unknown History Cholecalciferol Vit D3 [Vitamin D3 1,000 unit PO QDAY 06/07/21 06/07/21 Unknown History 1,000 UNIT TAB] Divalproex Dr [DepSmith POWELL] 125 mg PO BID 06/07/21 06/07/21 Unknown History Insulin Aspart [Insulin Aspart 9 unit SQ TID 06/07/21 06/07/21 Unknown History Flexpen] Insulin Glargine,Hum.rec.anlog 28 unit SQ QHS 06/07/21 06/07/21 Unknown History [Semglee] LORazepam [Ativan] 1 mg PO QHS 06/07/21 06/07/21 Unknown History Memantine HCl 10 mg PO BID 06/07/21 06/07/21 Unknown History Rivastigmine [Exelon] 1 each TD QDAY 06/07/21 06/07/21 Unknown History Sertraline HCl [Zoloft] 50 mg PO QAM 06/07/21 06/07/21 Unknown History Trazodone HCl 100 mg PO QHS 06/07/21 06/07/21 Unknown History Active Meds: Active Medications Acetaminophen (Acetaminophen 325 Mg/10.15 Ml Oral Liqd Unit Dose) 650 mg FEEDTUBE Q6H PRN PRN Reason: Pain MILD(1-3)/Fever >100.5/WOLF Dopamine HCl/Dextrose (Dopamine 800 Mg/D5w 250ml) 800 mg in 250 mls @ 4.594 mls/hr IV TITR ONE; Protocol Stop: 06/09/21 08:33 Last Titration: 06/07/21 04:09 Dose: 20 mcg/kg/min, 18.375 mls/hr Insulin Human Regular 100 (units/ Sodium Chloride) 100 mls @ 10 mls/hr IV TITR WANG; Protocol Last Titration: 06/07/21 05:10 Dose: 8 units/hr, 8 mls/hr Sodium Chloride (Nacl 0.9% 1000 Ml) 1,000 mls @ 150 mls/hr IV DIRECT WANG Last Admin: 06/07/21 04:31 Dose: 150 mls/hr Potassium Chloride/Dextrose/Sod Cl (D5w/0.45% Nacl/Kcl 20 Meq) 20 meq in 1,000 mls @ 125 mls/hr IV DIRECT WANG Sodium Bicarbonate 50 meq/ (Sodium Chloride) 1,050 mls @ 100 mls/hr IV DIRECT WANG Last Admin: 06/07/21 04:55 Dose: 100 mls/hr Morphine Sulfate (Morphine 2 Mg/1 Ml Inj) 2 mg IV Q4H PRN PRN Reason: Pain, Moderate (4-6) Morphine Sulfate (Morphine 4 Mg/1 Ml Inj) 4 mg IV Q4H PRN PRN Reason: Pain , Severe (7-10) Sodium Chloride (Sodium Chloride 0.9% 10 Ml Flush Syringe) 10 ml IV BID WANG Sodium Chloride (Sodium Chloride 0.9% 10 Ml Flush Syringe) 10 ml IV PRN PRN PRN Reason: LINE FLUSH Review of Systems ROS unobtainable: due to endotracheal tube Exam - Vital Signs Vital signs: Vital Signs Pulse BP Pulse Ox 98 H 77/26 99 06/07/21 01:30 06/07/21 01:30 06/07/21 01:30 - General Appearance General appearance: chronically ill, intubated, frail, comatose EENT: ATNC Neck: Present: neck supple Respiratory: Decreased Breath Sounds Heart: tachycardia Gastrointestinal: Present: normal Integumentary: cool/clammy Neurologic: other (Intubated and sedated) Musculoskeletal: Present: deferred Results - Lab Results 06/07/21 01:39 06/07/21 06:33 Most recent lab results ABG pH 6.964 pH Units (7.350-7.450) L* 06/07/21 03:20 ABG pCO2 18.4 mm Hg 06/07/21 03:20 ABG pO2 293.4 mm Hg (80.0-90.0) H 06/07/21 03:20 ABG HCO3 4.1 mmol/L (20.0-26.0) L 06/07/21 03:20 ABG O2 Saturation 99.4 % (95.0-99.0) H 06/07/21 03:20 Calcium 9.5 mg/dL (8.4-10.2) 06/07/21 06:33 Phosphorus 10.90 mg/dL (2.5-4.5) H 06/07/21 03:18 Magnesium 3.10 mg/dL (1.7-2.3) H 06/07/21 03:18 Assessment and Plan - Patient Problems (1) Acute kidney injury Current Visit: Yes Status: Acute Plan to address problem: Likely prerenal in etiology secondary to severe diabetic ketoacidosis. Agree with Santos catheter placement and careful monitoring of urine output. Will obtain renal ultrasound along with urine electrolytes. Agree with aggressive fluid hydration at this time given her concomitant severe diabetic ketoacidosis. Overall prognosis is very poor at this time given her advanced age and multiple other comorbidities. We will continue to monitor closely. (2) Hyperkalemia Current Visit: Yes Status: Acute Plan to address problem: In the setting of diabetic ketoacidosis. Started on appropriate therapy including insulin gtt with improvement noted in serum potassium levels. We will need to monitor carefully (3) DKA (diabetic ketoacidosis) Current Visit: Yes Status: Acute Plan to address problem: Management per primary team/ICU. Started on appropriate insulin drip and aggressive IV fluid hydration. Patient is also been started on D5 half-normal with 50 mEq of sodium bicarbonate. Will monitor response and may need to adjust fluids accordingly. (4) Acute respiratory failure with hypoxia Current Visit: Yes Status: Acute Plan to address problem: Ventilator management per ICU team. (5) Altered mental status Current Visit: Yes Status: Acute Plan to address problem: Likely in the setting of diabetic ketoacidosis and underlying metabolic encephalopathy. CT of the head reviewed.
[2021-06-07 09:53] LABS: Calcium 8.1 mg/dL (8.4-10.2)
[2021-06-07] MEDS ORDERED: SODIUM CHLORIDE 0.9% 1000 ML 3,000 ML IV ONE (11:00)
[2021-06-07] MEDS ORDERED: CEFEPIME/NS 1 GM/100 ML 1 GM/100 ML BAG IV SCH ×2 (11:00→14:00)
[2021-06-07] MEDS ORDERED: CEFEPIME 0.5 GM in SODIUM CHLORIDE 0.9% 100 ML IV SCH (12:00)
[2021-06-07] MEDS ORDERED: AZITHROMYCIN/NS 500 MG/250 ML 500 MG/250 ML BAG IV SCH (12:00)
[2021-06-07 13:02] LABS: Hepatitis B Surface Antigen Non-Reactive (Negative); Hepatitis C Virus Antibody Non-Reactive (NonReactive)
[2021-06-07 13:16] LABS: Calcium 8.9 mg/dL (8.4-10.2)
--- NOTE | 2021-06-07 14:42 | Consultation ---
History of Present Illness - Reason for Consult Consult date: 06/07/21 - History of Present Illness 81-year-old female past medical history diabetes, dementia presented to hospital with altered mental status. She is typically verbal at baseline, however was found to be unresponsive. In emergency room she was found to not have gag reflex, and she was intubated and sedated. She is found to be in DKA. Febrile to 100.5 with a white count 16.8. She is tachycardic and tachypneic. Acute otitis panel negative. eGFR 11. Blood cultures no growth so far. Urinalysis no evidence of infection. Imaging personally reviewed: Chest x-ray: Lungs normal aside from pulmonary nodule. Past History Past Medical History: diabetes, other (Dementia) Past Surgical History: Other (Unknown) Social history: other (Unknown) Family history: hypertension Medications and Allergies Allergies Allergy/AdvReac Type Severity Reaction Status Date / Time No Known Allergies Allergy Verified 06/07/21 02:20 Home Medications Medication Instructions Recorded Confirmed Last Taken Type ALPRAZolam [Xanax TAB] 0.25 mg PO BID PRN 06/07/21 06/07/21 Unknown History ARIPiprazole 5 mg PO QHS 06/07/21 06/07/21 Unknown History Amlodipine Besylate [Norvasc] 10 mg PO QDAY 06/07/21 06/07/21 Unknown History Aspirin [Adult Aspirin] 81 mg PO QDAY 06/07/21 06/07/21 Unknown History AtorvaSTATin [Lipitor] 20 mg PO QDAY 06/07/21 06/07/21 Unknown History Cholecalciferol Vit D3 [Vitamin D3 1,000 unit PO QDAY 06/07/21 06/07/21 Unknown History 1,000 UNIT TAB] Divalproex [Lata POWELL] 125 mg PO BID 06/07/21 06/07/21 Unknown History Insulin Aspart [Insulin Aspart 9 unit SQ TID 06/07/21 06/07/21 Unknown History Flexpen] Insulin Glargine,Hum.rec.anlog 28 unit SQ QHS 06/07/21 06/07/21 Unknown History [Semglee] LORazepam [Ativan] 1 mg PO QHS 06/07/21 06/07/21 Unknown History Memantine HCl 10 mg PO BID 06/07/21 06/07/21 Unknown History Rivastigmine [Exelon] 1 each TD QDAY 06/07/21 06/07/21 Unknown History Sertraline HCl [Zoloft] 50 mg PO QAM 06/07/21 06/07/21 Unknown History Trazodone HCl 100 mg PO QHS 06/07/21 06/07/21 Unknown History Active Meds: Active Medications Acetaminophen (Acetaminophen 325 Mg/10.15 Ml Oral Liqd Unit Dose) 650 mg FEE DTUBE Q6H PRN PRN Reason: Pain MILD(1-3)/Fever >100.5/WOLF Dopamine HCl/Dextrose (Dopamine 800 Mg/D5w 250ml) 800 mg in 250 mls @ 4.594 mls/hr IV TITR ONE; Protocol Stop: 06/09/21 08:33 Last Titration: 06/07/21 04:09 Dose: 20 mcg/kg/min, 18.375 mls/hr Insulin Human Regular 100 (units/ Sodium Chloride) 100 mls @ 10 mls/hr IV TITR WANG; Protocol Last Titration: 06/07/21 05:10 Dose: 8 units/hr, 8 mls/hr Sodium Chloride (Nacl 0.9% 1000 Ml) 1,000 mls @ 150 mls/hr IV DIRECT WANG Last Admin: 06/07/21 04:31 Dose: 150 mls/hr Potassium Chloride/Dextrose/Sod Cl (D5w/0.45% Nacl/Kcl 20 Meq) 20 meq in 1,000 mls @ 125 mls/hr IV DIRECT WANG Sodium Bicarbonate 50 meq/ (Sodium Chloride) 1,050 mls @ 100 mls/hr IV DIRECT WANG Last Admin: 06/07/21 04:55 Dose: 100 mls/hr Azithromycin (Zithromax/Ns) 500 mg in 250 mls @ 250 mls/hr IV Q24H WANG Last Admin: 06/07/21 13:04 Dose: 250 mls/hr Cefepime HCl (Cefepime/Ns 1 Gm/100 Ml) 1 gm in 100 mls @ 200 mls/hr IV Q24H WANG Morphine Sulfate (Morphine 2 Mg/1 Ml Inj) 2 mg IV Q4H PRN PRN Reason: Pain, Moderate (4-6) Morphine Sulfate (Morphine 4 Mg/1 Ml Inj) 4 mg IV Q4H PRN PRN Reason: Pain , Severe (7-10) Sodium Chloride (Sodium Chloride 0.9% 10 Ml Flush Syringe) 10 ml IV BID WANG Last Admin: 06/07/21 09:49 Dose: 10 ml Sodium Chloride (Sodium Chloride 0.9% 10 Ml Flush Syringe) 10 ml IV PRN PRN PRN Reason: LINE FLUSH Review of Systems ROS unobtainable: due to endotracheal tube Physical Examination - Physical Exam Narrative exam: Physical Exam: Constitutional: Intubated, sedated Head, Ears, Nose: Normocephalic, atraumatic. External ears, nose normal Eyes: Conjunctivae/corneas clear. No icterus. No ptosis. Neck: Supple, no meningeal signs Oral: ETT Cardiovascular: S1, S2 normal. Respiratory: Good air entry, clear to auscultation bilaterally GI: Soft, non-tender; bowel sounds normal. No peritoneal signs. Musculoskeletal: No pedal edema, no cyanosis. Skin: No rash or abscess Hem/Lymphatic: No palpable cervical or supraclavicular nodes. No lymphangitis Psych: Unable to obtain Neurological: Intubated, limited exam - Constitutional Vitals: Vital Signs Temp Pulse Resp BP Pulse Ox 100.1 F H 121 H 30 H 103/56 99 06/07/21 09:47 06/07/21 13:30 06/07/21 13:30 06/07/21 13:30 06/07/21 13:30 Temperature -Last 24 Hours Temperature 100.1 F Temperature 97.4 F Temperature 100.5 F Results - Labs CBC & Chem 7: 06/07/21 01:39 06/07/21 11:25 Labs: Abnormal lab results 06/07/21 06/07/21 06/07/21 Range/Units 01:25 01:39 01:39 WBC 16.8 H (4.5-11.0) K/mm3 RBC 3.21 L (3.65-5.03) M/mm3 MCV 119 H (79-97) fl MCHC 27 L (30-34) % RDW 17.0 H (13.2-15.2) % Seg Neuts % (Manual) 79.0 H (40.0-70.0) % Lymphocytes % (Manual) 13.0 L (13.4-35.0) % Monocytes % (Manual) 8.0 H (0.0-7.3) % Seg Neutrophils # Man 13.3 H (1.8-7.7) K/mm3 Monocytes # (Manual) 1.3 H (0.0-0.8) K/mm3 PT 15.4 H (12.2-14.9) Sec. ABG pH (7.350-7.450) pH Units ABG pO2 (80.0-90.0) mm Hg ABG HCO3 (20.0-26.0) mmol/L ABG O2 Saturation (95.0-99.0) % ABG Base Excess (-2.0-3.0) mmol/L ABG Hemoglobin (12.0-16.0) gm/dl VBG pH (7.320-7.420) Sodium (137-145) mmol/L Potassium (3.6-5.0) mmol/L Chloride (98-107) mmol/L Carbon Dioxide (22-30) mmol/L BUN (7-17) mg/dL Creatinine (0.6-1.2) mg/dL Glucose (65-100) mg/dL POC Glucose > 600 H (70-105) mg/dL Lactic Acid (0.7-2.0) mmol/L Calcium (8.4-10.2) mg/dL Phosphorus (2.5-4.5) mg/dL Magnesium (1.7-2.3) mg/dL AST (5-40) units/L Ammonia (25-60) umol/L Total Creatine Kinase (30-135) units/L CK-MB (CK-2) (0.0-4.0) ng/mL Total Protein (6.3-8.2) g/dL Albumin (3.9-5) g/dL Lipase (13-60) units/L 06/07/21 06/07/21 06/07/21 Range/Units 01:39 01:39 01:39 WBC (4.5-11.0) K/mm3 RBC (3.65-5.03) M/mm3 MCV (79-97) fl MCHC (30-34) % RDW (13.2-15.2) % Seg Neuts % (Manual) (40.0-70.0) % Lymphocytes % (Manual) (13.4-35.0) % Monocytes % (Manual) (0.0-7.3) % Seg Neutrophils # Man (1.8-7.7) K/mm3 Monocytes # (Manual) (0.0-0.8) K/mm3 PT (12.2-14.9) Sec. ABG pH (7.350-7.450) pH Units ABG pO2 (80.0-90.0) mm Hg ABG HCO3 (20.0-26.0) mmol/L ABG O2 Saturation (95.0-99.0) % ABG Base Excess (-2.0-3.0) mmol/L ABG Hemoglobin (12.0-16.0) gm/dl VBG pH (7.320-7.420) Sodium 147 H (137-145) mmol/L Potassium 8.0 H* (3.6-5.0) mmol/L Chloride 95.7 L (98-107) mmol/L Carbon Dioxide (22-30) mmol/L BUN 76 H (7-17) mg/dL Creatinine 4.8 H (0.6-1.2) mg/dL Glucose 1203 H* (65-100) mg/dL POC Glucose (70-105) mg/dL Lactic Acid 6.50 H* (0.7-2.0) mmol/L Calcium (8.4-10.2) mg/dL Phosphorus (2.5-4.5) mg/dL Magnesium (1.7-2.3) mg/dL AST 60 H (5-40) units/L Ammonia 92.0 H (25-60) umol/L Total Creatine Kinase 431 H (30-135) units/L CK-MB (CK-2) 6.7 H (0.0-4.0) ng/mL Total Protein 6.1 L (6.3-8.2) g/dL Albumin 3.7 L (3.9-5) g/dL Lipase 80 H (13-60) units/L 06/07/21 06/07/21 06/07/21 Range/Units 01:39 03:18 03:18 WBC (4.5-11.0) K/mm3 RBC (3.65-5.03) M/mm3 MCV (79-97) fl MCHC (30-34) % RDW (13.2-15.2) % Seg Neuts % (Manual) (40.0-70.0) % Lymphocytes % (Manual) (13.4-35.0) % Monocytes % (Manual) (0.0-7.3) % Seg Neutrophils # Man (1.8-7.7) K/mm3 Monocytes # (Manual) (0.0-0.8) K/mm3 PT (12.2-14.9) Sec. ABG pH (7.350-7.450) pH Units ABG pO2 (80.0-90.0) mm Hg ABG HCO3 (20.0-26.0) mmol/L ABG O2 Saturation (95.0-99.0) % ABG Base Excess (-2.0-3.0) mmol/L ABG Hemoglobin (12.0-16.0) gm/dl VBG pH 7.003 L* (7.320-7.420) Sodium (137-145) mmol/L Potassium (3.6-5.0) mmol/L Chloride (98-107) mmol/L Carbon Dioxide (22-30) mmol/L BUN (7-17) mg/dL Creatinine (0.6-1.2) mg/dL Glucose (65-100) mg/dL POC Glucose (70-105) mg/dL Lactic Acid 6.70 H* (0.7-2.0) mmol/L Calcium (8.4-10.2) mg/dL Phosphorus 10.90 H (2.5-4.5) mg/dL Magnesium 3.10 H (1.7-2.3) mg/dL AST (5-40) units/L Ammonia (25-60) umol/L Total Creatine Kinase (30-135) units/L CK-MB (CK-2) (0.0-4.0) ng/mL Total Protein (6.3-8.2) g/dL Albumin (3.9-5) g/dL Lipase (13-60) units/L 06/07/21 06/07/21 06/07/21 Range/Units 03:18 03:20 04:40 WBC (4.5-11.0) K/mm3 RBC (3.65-5.03) M/mm3 MCV (79-97) fl MCHC (30-34) % RDW (13.2-15.2) % Seg Neuts % (Manual) (40.0-70.0) % Lymphocytes % (Manual) (13.4-35.0) % Monocytes % (Manual) (0.0-7.3) % Seg Neutrophils # Man (1.8-7.7) K/mm3 Monocytes # (Manual) (0.0-0.8) K/mm3 PT (12.2-14.9) Sec. ABG pH 6.964 L* (7.350-7.450) pH Units ABG pO2 293.4 H (80.0-90.0) mm Hg ABG HCO3 4.1 L (20.0-26.0) mmol/L ABG O2 Saturation 99.4 H (95.0-99.0) % ABG Base Excess -26.1 L (-2.0-3.0) mmol/L ABG Hemoglobin 10.1 L (12.0-16.0) gm/dl VBG pH (7.320-7.420) Sodium 152 H (137-145) mmol/L Potassium 5.3 H D (3.6-5.0) mmol/L Chloride (98-107) mmol/L Carbon Dioxide 2 L* (22-30) mmol/L BUN 73 H (7-17) mg/dL Creatinine 4.6 H (0.6-1.2) mg/dL Glucose 1026 H* (65-100) mg/dL POC Glucose > 600 H (70-105) mg/dL Lactic Acid (0.7-2.0) mmol/L Calcium (8.4-10.2) mg/dL Phosphorus (2.5-4.5) mg/dL Magnesium (1.7-2.3) mg/dL AST (5-40) units/L Ammonia (25-60) umol/L Total Creatine Kinase (30-135) units/L CK-MB (CK-2) (0.0-4.0) ng/mL Total Protein (6.3-8.2) g/dL Albumin (3.9-5) g/dL Lipase (13-60) units/L 06/07/21 06/07/21 06/07/21 Range/Units 06:12 06:20 06:33 WBC (4.5-11.0) K/mm3 RBC (3.65-5.03) M/mm3 MCV (79-97) fl MCHC (30-34) % RDW (13.2-15.2) % Seg Neuts % (Manual) (40.0-70.0) % Lymphocytes % (Manual) (13.4-35.0) % Monocytes % (Manual) (0.0-7.3) % Seg Neutrophils # Man (1.8-7.7) K/mm3 Monocytes # (Manual) (0.0-0.8) K/mm3 PT (12.2-14.9) Sec. ABG pH (7.350-7.450) pH Units ABG pO2 (80.0-90.0) mm Hg ABG HCO3 (20.0-26.0) mmol/L ABG O2 Saturation (95.0-99.0) % ABG Base Excess (-2.0-3.0) mmol/L ABG Hemoglobin (12.0-16.0) gm/dl VBG pH (7.320-7.420) Sodium 155 H (137-145) mmol/L Potassium (3.6-5.0) mmol/L Chloride 108.0 H (98-107) mmol/L Carbon Dioxide 7 L* (22-30) mmol/L BUN 74 H (7-17) mg/dL Creatinine 4.8 H (0.6-1.2) mg/dL Glucose 794 H* 794 H* (65-100) mg/dL POC Glucose > 600 H (70-105) mg/dL Lactic Acid (0.7-2.0) mmol/L Calcium (8.4-10.2) mg/dL Phosphorus (2.5-4.5) mg/dL Magnesium (1.7-2.3) mg/dL AST (5-40) units/L Ammonia (25-60) umol/L Total Creatine Kinase (30-135) units/L CK-MB (CK-2) (0.0-4.0) ng/mL Total Protein (6.3-8.2) g/dL Albumin (3.9-5) g/dL Lipase (13-60) units/L 06/07/21 06/07/21 06/07/21 Range/Units 06:33 09:25 09:40 WBC (4.5-11.0) K/mm3 RBC (3.65-5.03) M/mm3 MCV (79-97) fl MCHC (30-34) % RDW (13.2-15.2) % Seg Neuts % (Manual) (40.0-70.0) % Lymphocytes % (Manual) (13.4-35.0) % Monocytes % (Manual) (0.0-7.3) % Seg Neutrophils # Man (1.8-7.7) K/mm3 Monocytes # (Manual) (0.0-0.8) K/mm3 PT (12.2-14.9) Sec. ABG pH (7.350-7.450) pH Units ABG pO2 (80.0-90.0) mm Hg ABG HCO3 (20.0-26.0) mmol/L ABG O2 Saturation (95.0-99.0) % ABG Base Excess (-2.0-3.0) mmol/L ABG Hemoglobin (12.0-16.0) gm/dl VBG pH (7.320-7.420) Sodium 154 H (137-145) mmol/L Potassium 3.4 L (3.6-5.0) mmol/L Chloride 113.1 H (98-107) mmol/L Carbon Dioxide 7 L* (22-30) mmol/L BUN 65 H (7-17) mg/dL Creatinine 4.2 H (0.6-1.2) mg/dL Glucose 552 H* (65-100) mg/dL POC Glucose 580 H (70-105) mg/dL Lactic Acid 7.30 H* (0.7-2.0) mmol/L Calcium 8.1 L (8.4-10.2) mg/dL Phosphorus (2.5-4.5) mg/dL Magnesium (1.7-2.3) mg/dL AST (5-40) units/L Ammonia (25-60) umol/L Total Creatine Kinase (30-135) units/L CK-MB (CK-2) (0.0-4.0) ng/mL Total Protein (6.3-8.2) g/dL Albumin (3.9-5) g/dL Lipase (13-60) units/L 06/07/21 06/07/21 Range/Units 11:25 12:25 WBC (4.5-11.0) K/mm3 RBC (3.65-5.03) M/mm3 MCV (79-97) fl MCHC (30-34) % RDW (13.2-15.2) % Seg Neuts % (Manual) (40.0-70.0) % Lymphocytes % (Manual) (13.4-35.0) % Monocytes % (Manual) (0.0-7.3) % Seg Neutrophils # Man (1.8-7.7) K/mm3 Monocytes # (Manual) (0.0-0.8) K/mm3 PT (12.2-14.9) Sec. ABG pH (7.350-7.450) pH Units ABG pO2 (80.0-90.0) mm Hg ABG HCO3 (20.0-26.0) mmol/L ABG O2 Saturation (95.0-99.0) % ABG Base Excess (-2.0-3.0) mmol/L ABG Hemoglobin (12.0-16.0) gm/dl VBG pH (7.320-7.420) Sodium 157 H (137-145) mmol/L Potassium (3.6-5.0) mmol/L Chloride 113.7 H (98-107) mmol/L Carbon Dioxide 11 L (22-30) mmol/L BUN 72 H (7-17) mg/dL Creatinine 4.6 H (0.6-1.2) mg/dL Glucose 526 H* (65-100) mg/dL POC Glucose 471 H (70-105) mg/dL Lactic Acid (0.7-2.0) mmol/L Calcium (8.4-10.2) mg/dL Phosphorus (2.5-4.5) mg/dL Magnesium (1.7-2.3) mg/dL AST (5-40) units/L Ammonia (25-60) umol/L Total Creatine Kinase (30-135) units/L CK-MB (CK-2) (0.0-4.0) ng/mL Total Protein (6.3-8.2) g/dL Albumin (3.9-5) g/dL Lipase (13-60) units/L Assessment and Plan Cultures: Blood culture no growth so far. A/P: 81-year-old female past medical history diabetes, dementia now with: #Acute sepsis/SIRS: With fevers, tachycardia, tachypnea, leukocytosis. Unclear etiology at present. Normal CXR, normal urinalysis. Blood cultured no growth so far. #Acute encephalopathy: with elevated ammonia, may also be secondary to sepsis. #DKA: management per ICU. #TONI: renally dose medications. Recs: -Continue cefepime -Started vancomycin -Follow up blood cultures -If stable enough to tolerate would check CT AP to evaluate source of potantial infection given negative Thank you for the consult, we will continue to follow. MD [facility] O: [phone] F: [phone]
--- NOTE | 2021-06-07 14:49 | Event Note ---
Date: 06/07/21 Patient seen and examined, discussed extensively with the son at bedside, he wants to think about the code status. He tells me that the patient was recently transferred to another NH and he is not sure what happened with medications. He tells me that the patient at baseline has Dementia and that was the reason for Hospice. Will give additional fluid bolus. Obtain ID consult due to sepsis and start on empiric abx. I'm not sure of the current test for which dopamine was started but will monitor wean off. Patient's family denies any history of cardiac disease. If tachycardia is not resolving despite improvement in metabolic acidosis we'll then consider an echocardiogram.
[2021-06-07] MEDS ORDERED: NORepinephrine/NS 8 MG-250 ML 8 MG/250 ML INFUS..BTL IV SCH (15:00)
[2021-06-07] MEDS ORDERED: VANCOMYCIN PHARMACY TO DOSE IV SCH (15:00)
--- NOTE | 2021-06-07 15:10 | Consultation ---
History of Present Illness Consult date: 06/07/21 Requesting physician: TJ GUPTA Reason for consult: other (AHRF; DKA; Sepsis) History of present illness: PULMONARY/CCM CONSULT NOTE (Full dictation # [id number]) Please see dictated notes for full details Past History Past Medical History: diabetes, other (Dementia) Past Surgical History: Other (Unknown) Social history: other (Unknown) Family history: hypertension Medications and Allergies Allergies Allergy/AdvReac Type Severity Reaction Status Date / Time No Known Allergies Allergy Verified 06/07/21 02:20 Home Medications Medication Instructions Recorded Confirmed Last Taken Type ALPRAZolam [Xanax TAB] 0.25 mg PO BID PRN 06/07/21 06/07/21 Unknown History ARIPiprazole 5 mg PO QHS 06/07/21 06/07/21 Unknown History Amlodipine Besylate [Norvasc] 10 mg PO QDAY 06/07/21 06/07/21 Unknown History Aspirin [Adult Aspirin] 81 mg PO QDAY 06/07/21 06/07/21 Unknown History AtorvaSTATin [Lipitor] 20 mg PO QDAY 06/07/21 06/07/21 Unknown History Cholecalciferol Vit D3 [Vitamin D3 1,000 unit PO QDAY 06/07/21 06/07/21 Unknown History 1,000 UNIT TAB] Divalproex Dr [Lata POWELL] 125 mg PO BID 06/07/21 06/07/21 Unknown History Insulin Aspart [Insulin Aspart 9 unit SQ TID 06/07/21 06/07/21 Unknown History Flexpen] Insulin Glargine,Hum.rec.anlog 28 unit SQ QHS 06/07/21 06/07/21 Unknown History [Semglee] LORazepam [Ativan] 1 mg PO QHS 06/07/21 06/07/21 Unknown History Memantine HCl 10 mg PO BID 06/07/21 06/07/21 Unknown History Rivastigmine [Exelon] 1 each TD QDAY 06/07/21 06/07/21 Unknown History Sertraline HCl [Zoloft] 50 mg PO QAM 06/07/21 06/07/21 Unknown History Trazodone HCl 100 mg PO QHS 06/07/21 06/07/21 Unknown History Active Meds: Active Medications Acetaminophen (Acetaminophen 325 Mg/10.15 Ml Oral Liqd Unit Dose) 650 mg FEEDTUBE Q6H PRN PRN Reason: Pain MILD(1-3)/Fever >100.5/WOLF Dopamine HCl/Dextrose (Dopamine 800 Mg/D5w 250ml) 800 mg in 250 mls @ 4.594 mls/hr IV TITR ONE; Protocol Stop: 06/09/21 08:33 Last Titration: 06/07/21 04:09 Dose: 20 mcg/kg/min, 18.375 mls/hr Insulin Human Regular 100 (units/ Sodium Chloride) 100 mls @ 10 mls/hr IV TITR WANG; Protocol Last Titration: 06/07/21 05:10 Dose: 8 units/hr, 8 mls/hr Sodium Chloride (Nacl 0.9% 1000 Ml) 1,000 mls @ 150 mls/hr IV DIRECT WANG Last Admin: 06/07/21 04:31 Dose: 150 mls/hr Potassium Chloride/Dextrose/Sod Cl (D5w/0.45% Nacl/Kcl 20 Meq) 20 meq in 1,000 mls @ 125 mls/hr IV DIRECT WANG Sodium Bicarbonate 50 meq/ (Sodium Chloride) 1,050 mls @ 100 mls/hr IV DIRECT WANG Last Admin: 06/07/21 04:55 Dose: 100 mls/hr Azithromycin (Zithromax/Ns) 500 mg in 250 mls @ 250 mls/hr IV Q24H WANG Last Admin: 06/07/21 13:04 Dose: 250 mls/hr Cefepime HCl (Cefepime/Ns 1 Gm/100 Ml) 1 gm in 100 mls @ 200 [facility]ls[facility] MG-250 ML (Norepinephrine/Ns 8 Mg-250 Ml (Double Conc)) 8 mg in 250 mls @ 3.75 mls/hr IV TITRATE WANG; Protocol Morphine Sulfate (Morphine 2 Mg/1 Ml Inj) 2 mg IV Q4H PRN PRN Reason: Pain, Moderate (4-6) Morphine Sulfate (Morphine 4 Mg/1 Ml Inj) 4 mg IV Q4H PRN PRN Reason: Pain , Severe (7-10) Sodium Chloride (Sodium Chloride 0.9% 10 Ml Flush Syringe) 10 ml IV BID WANG Last Admin: 06/07/21 09:49 Dose: 10 ml Sodium Chloride (Sodium Chloride 0.9% 10 Ml Flush Syringe) 10 ml IV PRN PRN PRN Reason: LINE FLUSH Physical Examination Vital signs: Vital Signs Pulse BP Pulse Ox 98 H 77/26 99 06/07/21 01:30 06/07/21 01:30 06/07/21 01:30 Results - Laboratory Findings CBC and BMP: 06/07/21 01:39 06/07/21 11:25 ABG ABG pH 6.964 pH Units (7.350-7.450) L* 06/07/21 03:20 ABG pCO2 18.4 mm Hg 06/07/21 03:20 ABG pO2 293.4 mm Hg (80.0-90.0) H 06/07/21 03:20 ABG O2 Saturation 99.4 % (95.0-99.0) H 06/07/21 03:20 PT/INR, D-dimer PT 15.4 Sec. (12.2-14.9) H 06/07/21 01:39 INR 1.09 (0.87-1.13) 06/07/21 01:39 Abnormal lab findings: Abnormal Labs 06/07/21 06/07/21 06/07/21 01:25 01:39 01:39 WBC 16.8 H RBC 3.21 L MCV 119 H MCHC 27 L RDW 17.0 H Seg Neuts % (Manual) 79.0 H Lymphocytes % (Manual) 13.0 L Monocytes % (Manual) 8.0 H Seg Neutrophils # Man 13.3 H Monocytes # (Manual) 1.3 H PT 15.4 H ABG pH ABG pO2 ABG HCO3 ABG O2 Saturation ABG Base Excess ABG Hemoglobin VBG pH Sodium Potassium Chloride Carbon Dioxide BUN Creatinine Glucose POC Glucose > 600 H Lactic Acid Calcium Phosphorus Magnesium AST Ammonia Total Creatine Kinase CK-MB (CK-2) Total Protein Albumin Lipase 06/07/21 06/07/21 06/07/21 01:39 01:39 01:39 WBC RBC MCV MCHC RDW Seg Neuts % (Manual) Lymphocytes % (Manual) Monocytes % (Manual) Seg Neutrophils # Man Monocytes # (Manual) PT ABG pH ABG pO2 ABG HCO3 ABG O2 Saturation ABG Base Excess ABG Hemoglobin VBG pH Sodium 147 H Potassium 8.0 H* Chloride 95.7 L Carbon Dioxide BUN 76 H Creatinine 4.8 H Glucose 1203 H* POC Glucose Lactic Acid 6.50 H* Calcium Phosphorus Magnesium AST 60 H Ammonia 92.0 H Total Creatine Kinase 431 H CK-MB (CK-2) 6.7 H Total Protein 6.1 L Albumin 3.7 L Lipase 80 H 06/07/21 06/07/21 06/07/21 01:39 03:18 03:18 WBC RBC MCV MCHC RDW Seg Neuts % (Manual) Lymphocytes % (Manual) Monocytes % (Manual) Seg Neutrophils # Man Monocytes # (Manual) PT ABG pH ABG pO2 ABG HCO3 ABG O2 Saturation ABG Base Excess ABG Hemoglobin VBG pH 7.003 L* Sodium Potassium Chloride Carbon Dioxide BUN Creatinine Glucose POC Glucose Lactic Acid 6.70 H* Calcium Phosphorus 10.90 H Magnesium 3.10 H AST Ammonia Total Creatine Kinase CK-MB (CK-2) Total Protein Albumin Lipase 06/07/21 06/07/21 06/07/21 03:18 03:20 04:40 WBC RBC MCV MCHC RDW Seg Neuts % (Manual) Lymphocytes % (Manual) Monocytes % (Manual) Seg Neutrophils # Man Monocytes # (Manual) PT ABG pH 6.964 L* ABG pO2 293.4 H ABG HCO3 4.1 L ABG O2 Saturation 99.4 H ABG Base Excess -26.1 L ABG Hemoglobin 10.1 L VBG pH Sodium 152 H Potassium 5.3 H D Chloride Carbon Dioxide 2 L* BUN 73 H Creatinine 4.6 H Glucose 1026 H* POC Glucose > 600 H Lactic Acid Calcium Phosphorus Magnesium AST Ammonia Total Creatine Kinase CK-MB (CK-2) Total Protein Albumin Lipase 06/07/21 06/07/21 06/07/21 06:12 06:20 06:33 WBC RBC MCV MCHC RDW Seg Neuts % (Manual) Lymphocytes % (Manual) Monocytes % (Manual) Seg Neutrophils # Man Monocytes # (Manual) PT ABG pH ABG pO2 ABG HCO3 ABG O2 Saturation ABG Base Excess ABG Hemoglobin VBG pH Sodium 155 H Potassium Chloride 108.0 H Carbon Dioxide 7 L* BUN 74 H Creatinine 4.8 H Glucose 794 H* 794 H* POC Glucose > 600 H Lactic Acid Calcium Phosphorus Magnesium AST Ammonia Total Creatine Kinase CK-MB (CK-2) Total Protein Albumin Lipase 06/07/21 06/07/2106/07/22 06:33 09:25 09:40 WBC RBC MCV MCHC RDW Seg Neuts % (Manual) Lymphocytes % (Manual) Monocytes % (Manual) Seg Neutrophils # Man Monocytes # (Manual) PT ABG pH ABG pO2 ABG HCO3 ABG O2 Saturation ABG Base Excess ABG Hemoglobin VBG pH Sodium 154 H Potassium 3.4 L Chloride 113.1 H Carbon Dioxide 7 L* BUN 65 H Creatinine 4.2 H Glucose 552 H* POC Glucose 580 H Lactic Acid 7.30 H* Calcium 8.1 L Phosphorus Magnesium AST Ammonia Total Creatine Kinase CK-MB (CK-2) Total Protein Albumin Lipase 06/07/21 06/07/21 06/07/21 11:25 12:25 13:45 WBC RBC MCV MCHC RDW Seg Neuts % (Manual) Lymphocytes % (Manual) Monocytes % (Manual) Seg Neutrophils # Man Monocytes # (Manual) PT ABG pH ABG pO2 ABG HCO3 ABG O2 Saturation ABG Base Excess ABG Hemoglobin VBG pH Sodium 157 H Potassium Chloride 113.7 H Carbon Dioxide 11 L BUN 72 H Creatinine 4.6 H Glucose 526 H* POC Glucose 471 H 409 H Lactic Acid Calcium Phosphorus Magnesium AST Ammonia Total Creatine Kinase CK-MB (CK-2) Total Protein Albumin Lipase
[2021-06-07] MEDS ORDERED: SODIUM BICARBONATE 150 MEQ in WATER, STERILE *NICU ONLY 1,000 SYR IV SCH (15:24)
[2021-06-07] MEDS ORDERED: LIP THERAPY VASELINE TP PRN (15:24)
[2021-06-07] MEDS ORDERED: MINERAL OIL/PETROLATUM, WHITE OPHTH OINT 3.5 GM OU PRN (15:24)
[2021-06-07] MEDS ORDERED: fentaNYL 100 MCG/2 ML INJ IV PRN (15:24)
[2021-06-07] MEDS ORDERED: LACTATED RINGERS 1,000 ML IV ONE (15:28)
[2021-06-07] MEDS ORDERED: MAGNESIUM SULFATE 2 GM/50 ML BAG IV ONE (15:49)
--- NOTE | 2021-06-07 15:55 | Event Note ---
Date: 06/07/21 I responded to a CODE BLUE with cardiac arrest. Patient had become bradycardic and bradycardia down to asystole. CPR was initiated. Patient is here with DKA on an insulin drip. She was hypotensive and on Levophed as well. Patient has evidence of GI bleed based on the NG contents. CPR was continued. Patient received epi and atropine. She was given magnesium and bicarb. Ultimately, after ACLS protocol and CPR, she did have return of spontaneous circulation. I did review her labs. She had a bicarb of 12 this morning. There was no e vidence of magnesium level this morning so magnesium was given. Dr. Vanessa, the hospitalist, arrived and care was signed out to him for ongoing treatment.
[2021-06-07 16:00] LABS: ABG Methemoglobin 0.7 % (0.0-1.5); ABG Oxygen Saturation 99.7 % (95.0-99.0)
[2021-06-07] MEDS ORDERED: fentaNYL DRIP Premix 2,000 MCG/100 ML BAG IV SCH (16:00)
[2021-06-07] MEDS ORDERED: VASOPRESSIN 20 UNIT in SODIUM CHLORIDE 0.9% 100 ML IV SCH (16:00)
[2021-06-07 16:04] VITALS: BP 149/68
--- NOTE | 2021-06-07 16:04 | Event Note ---
Date: 06/07/21 I called and updated the son of her recent change in events with patient's CODE BLUE status and rapid resuscitation with 4 minutes of CPR he verbalized understanding and requested that the patient be made a DNR. Nursing staff is called to to collaborate this. We will go ahead and put in the order change in accordance to the patient's son's wishes. [id number]-RuMr [place] [facility] Advance care plan time 30 mins
--- NOTE | 2021-06-07 16:16 | Event Note ---
Date: 06/07/21 I was called back to the room secondary to bradycardia. The hospitalist had spoken to family and had made the patient DO NOT RESUSCITATE. Actual paperwork was not immediately available. This conversation was had by nursing staff as well as the hospitalist. Multiple people had witnessed this verbal exchange. Based on that, patient was DNR. She continued to bradycardia down to the point that she had no pulse. She ultimately was in a PEA rhythm. As the patient had no pulse and was in PEA, she was pronounced at 1611 hrs.
--- NOTE | 2021-06-07 16:17 | Death Summary ---
Summary - Providers Date of service: 06/07/21 Consults: 06/07/21 04:07 Consult to Dietitian/Nutrition [CONS] Routine Physician Instructions: Reason For Exam: Reason for Consult: Diet education Consult to Physician [CONS] Routine Comment: Consulting Provider: KINZA WHITE Physician Instructions: Reason For Exam: DKA,HEPATIC ENCEPHALOPATHY Consult to Physician [CONS] Urgent Comment: Consulting Provider: KINZA WHITE Physician Instructions: Reason For Exam: ICU admit, DKA, TONI, AMS 06/07/21 04:15 Consult to Physician [CONS] Routine Comment: Consulting Provider: SELAM CHANDRA Physician Instructions: Reason For Exam: TONI 06/07/21 05:55 Consult to Physician [CONS] Routine Comment: Consulting Provider: GAURANG WAITE Physician Instructions: Reason For Exam: Elevated liver enzymes, hyperammonemia 06/07/21 08:16 Consult to Physician [CONS] Routine Comment: Consulting Provider: KASSANDRA QUISPE Physician Instructions: Reason For Exam: SEPSIS Attending: FRED ROBERTSON MD - summary Date of admission: 06/07/21 04:07 Date of : 06/07/21 Reason for admission: ENCEPHALOPATHY WITH dka Significant findings: 81-year-old -[place] female resident of [facility]/hospice brought into the emergency room today via EMS for evaluation of changes in mental status. Patient has known history of diabetes mellitus and dementia was said to be normally alert and able to communicate. However she was found to be completely unresponsive today and brought into the emergency room for further evaluation. Upon arrival in the emergency room she was found not to have gag reflex and obtunded. She was subsequently intubated in the emergency room. Most of the history was obtained from the ER staff as patient is unable to give any information at this time. Work-up in the emergency room today, labs significant for leukocytosis of 16.8, sodium of 152, potassium of 5.3, CO2 of 2, glucose of 1026, lactic acid of 6.7, blood glucose greater than 600, phosphorus is 10.9 and magnesium 3.1. AST of 60 and ALT of 27. Ammonia level of 92, creatinine kinase of 431. ABG significant for pH of 6.9, PCO2 of 18.4, PO2 of 293, bicarb of 4.1. O2 sat of 99.4. Chest x-ray and CT scan of the head were unremarkable. Patient being admitted with multiple medical problems including DKA, hepatic encephalopathy, dehydration, leukocytosis, TONI and changes in mental status. patient was seen by GI, pulmonary and Nephrology. She was treated for diabetic ketoacidosis with fluid severe metabolic acidosis with transaminases and encephalopathy. Fortunately she did bradycardia down and went into PEA was resuscitated and on discussion with the son was made a DNR. Shortly after the patient went into PEA arrest again and was shortly pronounced at 1611 hrs. by my colleague. Family has been notified with [facility] extended.. PEA arrest DKA Uncontrolled diabetes mellitus Severe metabolic acidosis Lactic acidosis Severe sepsis with septic shock next Acute metabolic encephalopathy Elevated transaminases
[2021-06-07] MEDS ORDERED: VANCOMYCIN 750 MG in SODIUM CHLORIDE 0.9% 250ML 250 ML IV ONE (16:30)
[2021-06-07 17:27] LABS: ABG Base Excess -22.1 mmol/L (-2.0-3.0); ABG HCO3 6.4 mmol/L (20.0-26.0); ABG PCO2 23.3 mm Hg; ABG PO2 228.6 mm Hg (80.0-90.0)
[2021-06-07 17:34] LABS: ABG PH 7.056 pH Units (7.350-7.450)
[2021-06-07] MEDS ORDERED: SENNOSIDES/DOCUSATE SODIUM 8.6/50 MG TAB FEEDTUBE SCH (22:00)
[2021-06-07] MEDS ORDERED: HEPARIN 5,000 UNIT/1 ML VIAL SUB-Q SCH (22:00)
--- NOTE | 2021-06-07 22:03 | Consultation ---
DATE OF CONSULTATION: 06/07/2021 PULMONARY CRITICAL CARE CONSULT NOTE CONSULTING PHYSICIAN: Dr. Thomas. REASON FOR CONSULTATION: Acute hypoxemic respiratory failure, on mechanical ventilatory support; sepsis with shock, diabetic ketoacidosis. CHIEF COMPLAINT AND HISTORY OF PRESENT ILLNESS: The patient is a now 81-year-old female with past medical history significant amongst other things for a diagnosis of diabetes and dementia, a resident of [facility], I believe is an assisted living facility/detention. She reportedly is under hospice, was brought into the Emergency Room due to altered mental status. She was nonresponsive, reportedly initially with absent gag reflex. She was intubated on arrival without needing sedation. Post-intubation, she was evaluated. Further workup revealed amongst other things serum glucose of 1026, a lactic acid of 6.7 and ABG revealed a pH of 6.9, despite a pCO2 of 18.4. Post-intubation and stabilization, we were asked to assist with management. When I stopped by to see her, she was rested on the mechanical ventilator. She was on the PRVC, AC mode of ventilation, tidal volume 450, rate of 26, FiO2 60% and PEEP of 6. She was unresponsive. She had a bicarbonate drip going. She reportedly had just received about 2 liters of normal saline total per the nurse, she was in the building. I do not have any history of vomiting or overt aspiration. I certainly cannot rule that out. That really is as much of the history of presentation as I have. PAST MEDICAL HISTORY: Diabetes, dementia. PAST SURGICAL HISTORY: Unknown. MEDICATIONS: She was on at the time I stopped by to see according to the medication administration record included the following: Tylenol 650 mg p.o. q. 6 hours p.r.n. mild pain or fever, all p.o. meds via the feeding tube, azithromycin 500 mg IV daily, cefepime 1 gram IV daily, dopamine drip was maxed at 20 mcg per kilogram per minute, insulin drip was going at 10 units per hour, morphine sulfate 2 mg IV q. 4 hours p.r.n. moderate pain, a 50 mEq of bicarbonate per liter of normal saline was running at 100 per hour. ALLERGIES: No known drug allergies. DIET: Thin lady, acute weight loss, again history is unknown. FAMILY AND SOCIAL HISTORY: Apparently lives in the hospice setting. No current alcohol, tobacco or illicit drug use or abuse. Remote history is unknown. FAMILY HISTORY: Otherwise unknown. REVIEW OF SYSTEMS: Unobtainable secondary to the patient's medical and mental condition. Since she has been here, no gross hematochezia or melena, no gross hematuria, no hematemesis, no hemoptysis, no bloody tracheal secretions, no witnessed seizures. Review of systems otherwise unobtainable or as in body of history above. PHYSICAL EXAMINATION: VITAL SIGNS: At presentation. According to the vital signs, she had a fever of 100.5 degrees Fahrenheit, pulse of 98, respiratory rate of 24, blood pressure of 77/26, O2 sats were 99%, inspired oxygen concentration at that time was not recorded. GENERAL: She is an elderly, chronically ill looking female. Normocephalic, atraumatic on the mechanical ventilator without significantly increased respiratory effort at rest. HEAD, EYES, EARS, NOSE AND THROAT: Anicteric. No conjunctival erythema. Oropharynx was moist. She has ET tube taped at the lips around 24 cm. NECK: No gross jugular venous distention, no thyromegaly. Grossly, there were no palpable lymph nodes in the supraclavicular or submandibular lymph node chains. LUNGS: Auscultation of both lung lake was unremarkable. Clear bilaterally with good bilateral air movement. HEART: Sounds 1 and 2 are heard, regular rate and rhythm at the time of my evaluation without overt rubs or murmurs. ABDOMEN: Soft, flat, bowel sounds are positive, nontender, no palpable hepatosplenomegaly. EXTREMITIES: Without overt digital clubbing or cyanosis, no pedal edema. Pedal pulses are 2+ bilaterally. She has right groin femoral line in place. No significant bleeding or exudation around it. NEUROLOGIC: Pupils were equal, round, about 1-2 mm, sluggishly reactive to light. Extraocular muscle movements cannot be assessed. She did not have spontaneous movements to all extremities. SKIN: Normal turgor in the areas examined without overt cellulitis or rash. Please see the wound care nurses' notes for full description of his skin. PSYCHIATRIC: Mood and affect could not be assessed. She was encephalopathic. LABORATORY DATA: From my review, white count 16,800, hemoglobin 10.1, hematocrit 38.1, platelet count 307, no band forms on the manual differential. INR 1.09. Arterial blood gas showed a pH of 7.0, pCO2 of 18.4, pO2 of 293 on 100% FiO2. Serum sodium was 152, potassium 5.3, chloride 103, bicarbonate was 2, BUN 73, creatinine 4.6, glucose was 1026. Mag and phos were elevated. AST was 60, otherwise liver function tests essentially within normal limits. CPK was 431. Troponin not yet resulted. Urinalysis negative for nitrites and leukocyte esterase, no bacteria reported. Hep C screen negative. Lactic acid level was 6.7, it is up to 7.3. Two sets of blood cultures, no growth to date. Chest x-ray is unremarkable. Chest x-ray clear. Tubes and lines are in good position. CT of the head was done. I have reviewed the radiologist's interpretation, no acute intracranial pathology. ASSESSMENT: 1. Acute hypoxemic respiratory failure, on mechanical ventilatory support. 2. Sepsis with shock, septic plus or minus hypovolemic. 3. Diabetic ketoacidosis. 4. Acute kidney injury. 5. Acute possibly on chronic encephalopathy. 6. Leukocytosis. 7. Severe metabolic acidosis. 8. Lactic acidosis. 9. Oropharyngeal dysphagia. PLAN: I will do lactated Ringer's at this point. I will continue to give her volume resuscitation. I will run another bag at 250 mL per hour for 1 liter. We will continue IV resuscitation, otherwise, via the DKA protocol. I will be starting her on a sterile water drip with 3 amps of sodium bicarbonate per liter of sterile water and run that at 150 mL per hour for about 3 liters. Vasopressin has been ordered. Levophed has been ordered, will be starting dose and get her off the dopamine as soon as possible. We will target a mean arterial pressure of about 65 mmHg. Electrolytes will be followed and corrected per the protocol. Inputs and outputs will be followed. Nephrology evaluation is appropriate. We will continue empiric azithromycin and cefepime at this point. We will defer further changes to the Infectious Disease physician. A procalcitonin level will be ordered to help guide clinical decision making. She will be n.p.o. for now, but ultimately enteral nutrition is going to be the feeding modality of choice. She will be placed on GI prophylaxis with Pepcid, DVT prophylaxis with heparin. I will increase the set rate on the mechanical ventilator to 30 depending on the result of a stat ABG that I have just ordered. Flu and pneumonia vaccination will be addressed per protocol. Thank you very much for the consult. We will follow along with further recommendations as picture progresses/becomes clearer. She is critically ill on life-sustaining interventions including mechanical ventilatory support at very high risk of from cardiopulmonary system decompensation. At this time, I spent about 35-40 minutes of critical care time without overlap and excluding any procedural time that may be necessary. TID: [id number] RECEIPT: [id number] FELIX/KOREY
[2021-06-08] MEDS ORDERED: FAMOTIDINE 20 MG/2 ML INJ IV SCH (10:00)
--- NOTE | 2021-06-08 10:21 | Electrocardiograph Report ---
[facility] Test Date: 2021-06-07 Test Time: 01:46:03 Pat Name: EMMA ALCOCER Department: Room: A254 Gender: F Transactional Attorney: TRIPP : 1940 Requested By: INCO KAUR Order Number: [id number] Reading MD: Parth Nielsen Measurements Intervals [place] Rate: 141 P: 87 MS: 212 QRS: -91 QRSD: 134 T: 71 QT: 338 QTc: 519 Interpretive Statements SINUS TACHYCARDIA Ventricular premature complex Right bundle branch block No previous ECG available for comparison Electronically Signed On 06-08-2021 10:20:47 EST by Parth Nielsen
== END 2021-06-07 18:00 | DRG 871 ==
LOC: ED 01:17 → CC1 04:07
PROVIDERS: ADMIT Internal Medicine Geriatric Medicine; ATTEND Internal Medicine
PROC: 5A1935Z Respiratory Ventilation, Less than 24 Consecutive Hours (ICD-10-PCS; principal; 2021-06-07)
PROC: 0BH17EZ Insertion of Endotracheal Airway into Trachea, Via Natural or Artificial Opening (ICD-10-PCS; 2021-06-07)
PROC: 4A033R1 Measurement of Arterial Saturation, Peripheral, Percutaneous Approach (ICD-10-PCS; 2021-06-07)
PROC: 06HY33Z Insertion of Infusion Device into Lower Vein, Percutaneous Approach (ICD-10-PCS; 2021-06-07)
PROC: 5A12012 Performance of Cardiac Output, Single, Manual (ICD-10-PCS; 2021-06-07)
DX: A41.9 Sepsis, unspecified organism (principal); E11.10 Type 2 diabetes mellitus with ketoacidosis without coma; J96.01 Acute respiratory failure with hypoxia; R65.21 Severe sepsis with septic shock; G93.41 Metabolic encephalopathy; N17.9 Acute kidney failure, unspecified; K72.90 Hepatic failure, unspecified without coma; E86.0 Dehydration; F03.90 Unspecified dementia, unspecified severity, without behavioral disturbance, psychotic disturbance, mood disturbance, and anxiety; E87.5 Hyperkalemia; I46.9 Cardiac arrest, cause unspecified; Z66 Do not resuscitate; Z79.82 Long term (current) use of aspirin; Z79.4 Long term (current) use of insulin; Z82.49 Family history of ischemic heart disease and other diseases of the circulatory system
CPT/HCPCS: 36415; 36600; 70450; 71045; 80048; 80053; 80074; 81001; 82140; 82550; 82553; 82803; 82805; 82947; 82962; 83690; 83735; 84100; 84484; 85007; 85025; 85610; 85730; 87040; 87070; 87076; 87186; 87205; 93005; 94002; G0378; J2354; J3490; Q0162; Q9967; J0171; J0456; J0692; J1265; J1815; J2001; J3475; J7030